=== PATIENT | female | born 1955 | race Hispanic/Latino ===

== ENCOUNTER 2017-03-16 08:54 | Emergency (ER) | payer MEDICAID ==
[2017-03-16 09:09] VITALS: TEMP 98.6
[2017-03-16 09:13] VITALS: O2SAT 95
--- NOTE | 2017-03-16 09:23 | C.PDOC ---
History Of Present Illness 62-year-old female, PMHx includes gastric bypass surgery and history of thyroid cancer, presents to the emergency department with complaints of asthma intermittently x2 weeks. Patient states she saw PMD for same complaint, and finished ten days of Prednisone one week ago. Patient states that sx recurred again. Pt is s/p nebulizer prior to arrival. She is currently asymptomatic. No fever. CO EXAC ASTHMA INTERMIT X 2 WEEKS. SAW PMD FOR SAME, FINISHED 10 DAYS OF PREDNISONE 1 WEEK AGO. STATES RECURRED AGAIN. S/P NEB HAND FUNNEL COATER NOW ASYMPT. NO FEVER, OTHER ASSOC SX. history of gastric bypass surgery and history of thyroid cancer EXAM NARD NONTOXIC SP NEB PRIOR TO ASSESSMENT LUNGS CTA B/L NO W/R/R CV RRR SINUS TACH NO EDEMA REMAINDER NEG MDM PS RELUCTANT TO TAKE STEROIDS AGAIN BUT UNDERSTANDS RISKS/BENEFITS. AGREES TO RESTART WILL FU PMD Time Seen by Provider: 03/16/17 09:22 Chief Complaint (Nursing): Shortness Of Breath History Per: Patient Past Medical History Reviewed: Historical Data, Nursing Documentation, Vital Signs Vital Signs: Last Vital Signs Temp 98.6 F 03/16/17 09:03 Pulse 103 H 03/16/17 09:46 Resp 26 H 03/16/17 09:46 BP 129/70 03/16/17 09:46 Pulse Ox 95 03/16/17 09:46 - Medical History PMH: Anxiety, Asthma, Depression, Diabetes, Fractures (L Knee surgery 3 years ago), Gastrointestinal Ulcer, Hyperthyroidism, Hypothyroidism, Malignancy ( Thyroid), Pancreatitis Surgical History: Cholecystectomy (APRIL 2015) - [facility] Procedures APPLICATION OF SPLINT (12/01/14) CYSTOSCOPY NEC (07/21/13) EXCISION OF STOMACH, ENDO, DIAGN (04/06/16) GROUP PSYCHOTHERAPY (10/02/16) INDIVID PSYCHOTHERAP NEC (04/03/14) LAPAROSCOP LYSIS-PERITONEAL ADHES (05/11/15) LAPAROSCOPIC CHOLECYSTECTOMY (05/11/15) OTHER GROUP THERAPY (04/03/14) PERCUTANEOUS ABDOMINAL DRAINAGE (05/11/15) REMOV URETERAL DRAIN (07/21/13) URETERAL CATHETERIZATION (07/02/13) Family History: States: No Known Family Hx - Social History Hx Tobacco Use: No Hx Alcohol Use: No Hx Substance Use: No - Immunization History Hx Tetanus Toxoid Vaccination: No Hx Influenza Vaccination: Yes Hx Pneumococcal Vaccination: No Review Of Systems Except As Marked, All Systems Reviewed And Found Negative. Constitutional: Negative for: Fever Cardiovascular: Negative for: Chest Pain, Palpitations Respiratory: Positive for: Shortness of Breath, Wheezing. Negative for: Cough Gastrointestinal: Negative for: Nausea, Vomiting Skin: Negative for: Rash Neurological: Negative for: Weakness, Numbness Physical Exam - Physical Exam Appears: Non-toxic, No Acute Distress, Other (SP NEB PRIOR TO ASSESSMENT) Skin: Warm, Dry, No Rash Eye(s): bilateral: Normal Inspection Nose: Normal Neck: Normal ROM Chest: Symmetrical Cardiovascular: Rhythm Regular, No Murmur Respiratory: Normal Breath Sounds, No Accessory Muscle Use, No Rales, No Rhonchi , No Wheezing Extremity: Normal ROM, No Pedal Edema Neurological/Psych: Oriented x3 ED Course And Treatment ECG: Interpreted By Me ECG Rhythm: Sinus Tachycardia Interpretation Of EC O2 Sat by Pulse Oximetry: 95 Pulse Ox Interpretation: Normal Medical Decision Making Medical Decision Making: PS RELUCTANT TO TAKE STEROIDS AGAIN BUT UNDERSTANDS RISKS/BENEFITS. AGREES TO RESTART WILL FU PMD Disposition Counseled Patient/Family Regarding: Diagnosis, Need For Followup, Rx Given - Disposition Referrals: YOUR,PMD [Other] Disposition: HOME/ ROUTINE Disposition Time: 09:33 Condition: IMPROVED Additional Instructions: FINISH 4 DAYS OF PREDNISONE 60 MG DAILY THEN TAKE MEDROL DOSE PACK TO TAPER DOSE. SEE YOUR PMD THIS WEEK. Prescriptions: Methylprednisolone [Medrol] 4 mg PO DAILY #1 packet predniSONE [Prednisone] 60 mg PO DAILY #12 tab Instructions: Asthma (ED) - Clinical Impression Clinical Impression: Asthma - Scribe Statement The provider has reviewed the documentation as recorded by the Rachana Parker All medical record entries made by the Patriciaibsanthosh were at my direction and personally dictated by me. I have reviewed the chart and agree that the record accurately reflects my personal performance of the history, physical exam, medical decision making, and the department course for this patient. I have also personally directed, reviewed, and agree with the discharge instructions and disposition.
[2017-03-16 09:46] VITALS: BP 129/70; PULSE 103; RESP 26
--- NOTE | 2017-03-18 01:59 | CARD ---
APPROVED REPORT EKG Measurement Heart [id number] <Conclusion> Sinus tachycardia Otherwise normal ECG
== END 2017-03-16 09:57 | disposition home or self-care (01) ==
LOC: C.ER 08:54
DX: J45.909 Unspecified asthma, uncomplicated (principal)

== ENCOUNTER 2017-04-01 07:13 | Day surgery (SDC) | payer MEDICAID ==
[2017-04-01 07:43] VITALS: BMI 27.9
[2017-04-01] MEDS ORDERED: Lactated Ringer's 500 ML IV SCH (08:45)
[2017-04-01] MEDS ORDERED: Propofol 10 mg/ml Inj (20 ML) ONE ×3 (08:50→09:45)
[2017-04-01] MEDS ORDERED: Lidocaine Hydrochloride 5 ML INJ ONE (08:51)
[2017-04-01] MEDS ORDERED: Albuterol-Ipratrop 3 mg / 0.5 (3 ml) UD ONE (09:30)
[2017-04-01 10:19] VITALS: TEMP 99
[2017-04-01] MEDS ORDERED: Albuterol-Ipratrop 3 mg / 0.5 (3 ml) UD INH STA (10:57)
[2017-04-01 11:48] VITALS: RESP 20
[2017-04-01 11:50] VITALS: BP 120/72; PULSE 84; O2SAT 98
== END 2017-04-01 11:40 | disposition home or self-care (01) ==
LOC: C.ENDO 07:13
PROVIDERS: ATTEND Internal Medicine Gastroenterology
DX: D12.2 Benign neoplasm of ascending colon (principal); R10.9 Unspecified abdominal pain; R19.7 Diarrhea, unspecified; D12.5 Benign neoplasm of sigmoid colon; K64.8 Other hemorrhoids
CPT/HCPCS: 45388; 82948; 88305; 88313; 88342; 94640; 94761; J2704; J7120

== ENCOUNTER 2017-04-08 20:36 | Inpatient (IN) | payer MEDICAID ==
[2017-04-08 20:36] VITALS: BMI 27.9
[2017-04-08] MEDS ORDERED: Albuterol 0.083% Inhal Sol (2.5 mg/3 mL) UD IH STA (21:07)
[2017-04-08 21:28] LABS: BASO # 0.1 K/uL (0.0-0.2); EOS # 0.3 K/uL (0.0-0.7); EOS % 4.2 % (0.0-4.0); HEMATOCRIT 41.2 % (34.0-47.0); LYMPH # 2.2 K/uL (1.0-4.3); LYMPH % 30.5 % (20.0-40.0); MEAN CORPUSCULAR HEMOGLOBIN 27.4 pg (27.0-31.0); MEAN CORPUSCULAR HGB CONC 33.1 g/dL (33.0-37.0); MEAN PLATELET VOLUME 7.9 fL (7.2-11.7); MONO # 0.5 K/uL (0.0-0.8); MONO % 6.4 % (0.0-10.0); NRBC % 0.1 % (0.0-2.0); RED CELL DISTRIBUTION WIDTH 13.5 % (11.5-14.5); WHITE BLOOD COUNT 7.4 K/uL (4.8-10.8)
[2017-04-08] MEDS ORDERED: Albuterol 0.083% Inhal Sol (2.5 mg/3 mL) UD ONE (21:28)
[2017-04-08 21:30] LABS: MEAN CELL VOLUME 82.9 fL (81.0-99.0)
--- NOTE | 2017-04-08 21:35 | C.PDOC ---
History Of Present Illness 62 year old female was brought to the ED by EMS with complaints of cough, chest congestion, and shortness of breath for two weeks. Medics state patient was given two albuterol treatments and Solu-Medrol en route to ED. Patient notes a history of diabetes, thyroid cancer that is now in remission, and mild asthma with occasional use of ventolin inhaler but denies being hospitalized for asthma related symptoms. She notes chest congestion worsened, cough become productive with yellow phlegm, and progressively more short of breath. Patient states she had an endoscopy performed, while anesthesia began to cough, and was given breathing treatment but produced much more yellow phlegm, chest congestion , and shortness of breath following the treatment. Patient's doctor gave predniSONE, however she is not in compliance with medications because she is unable to tolerate the side effects. Patient is using nebulizer treatment and ventolin inhaler with no relief. She notes exposure to second-hand smoke and associated lightheadedness, fatigue, and bodyaches but denies chills, nausea, or vomiting. Time Seen by Provider: 04/08/17 20:53 Chief Complaint (Nursing): Shortness Of Breath History Per: Patient History/Exam Limitations: no limitations Onset/Duration Of Symptoms: Persistent (2 weeks ) Current Respiratory Medications: Albuterol, Prednisone (discontinued use of prednisone due to inability to tolerate side effects ), Other (nebulizer treatment and ventolin inhaler ) Associated Symptoms: Productive Cough (withe yellow phlegm ), Light-headedness, Other (chest congestion, fatigue, and bodyaches ). denies: Chills Reports Recently: Treated By A Physician (had endoscopy performed ) Recent travel outside of the [place]: No Past Medical History Reviewed: Historical Data, Nursing Documentation, Vital Signs Vital Signs: Last Vital Signs Temp 98.6 F 04/08/17 20:55 Pulse 118 H 04/08/17 20:55 Resp 30 H 04/08/17 21:00 BP 150/80 04/08/17 20:55 Pulse Ox 99 04/08/17 21:46 - Medical History PMH: Anemia, Anxiety, Arthritis, Asthma, Depression, Diabetes, Fractures (LEFT LEG), Gastritis, Gastrointestinal Ulcer, Gall Bladder Disease, Hyperthyroidism, Hypothyroidism (S\P THYROIDECTOMY FOR CANCER), Kidney Stones, Malignancy ( Thyroid), Pancreatitis, Chronic Kidney Disease Surgical History: Cholecystectomy, Endoscopy - [facility] Procedures APPLICATION OF SPLINT (12/01/14) CYSTOSCOPY NEC (07/21/13) EXCISION OF STOMACH, ENDO, DIAGN (04/06/16) GROUP PSYCHOTHERAPY (10/02/16) INDIVID PSYCHOTHERAP NEC (04/03/14) LAPAROSCOP LYSIS-PERITONEAL ADHES (05/11/15) LAPAROSCOPIC CHOLECYSTECTOMY (05/11/15) OTHER GROUP THERAPY (04/03/14) PERCUTANEOUS ABDOMINAL DRAINAGE (05/11/15) REMOV URETERAL DRAIN (07/21/13) URETERAL CATHETERIZATION (07/02/13) Family History: States: Unknown Family Hx - Social History Hx Tobacco Use: No Hx Alcohol Use: No Hx Substance Use: No - Immunization History Hx Tetanus Toxoid Vaccination: No Hx Influenza Vaccination: Yes Hx Pneumococcal Vaccination: No Review Of Systems Constitutional: Positive for: Other (bodyaches and fatigue ). Negative for: Fever, Chills Cardiovascular: Positive for: Other (chest congestion ). Negative for: Palpitations Respiratory: Positive for: Cough (with yellow phlegm ) Gastrointestinal: Negative for: Nausea, Vomiting, Abdominal Pain, Diarrhea Neurological: Positive for: Other (lightheadedness ) Physical Exam - Physical Exam Appears: Non-toxic, No Acute Distress, Other (Patient was given breathing treatments by medics en route to ED prior to exam) Skin: Warm, Dry Head: Atraumatic Eye(s): bilateral: Normal Inspection Ear(s): Bilateral: Normal Oral Mucosa: Moist Throat: Normal, No Erythema, No Exudate Neck: Supple Chest: Symmetrical, No Deformity Cardiovascular: Rhythm Regular Respiratory: No Rales, Rhonchi (course rhonci at both bases ), No Stridor, Wheezing (diffuse wheezing in all lung cee ) ED Course And Treatment - Laboratory Results Result Diagrams: 04/08/17 21:25 04/08/17 21:25 Lab Interpretation: No Acute Changes (Troponin and BNP normal) ECG: Interpreted By [place] ECG Rhythm: Sinus Tachycardia, ST/T Changes, Nonspecific Changes O2 Sat by Pulse Oximetry: 99 (room air ) Pulse Ox Interpretation: Normal - Radiology CXR: Interpreted by [place] CXR Interpretation: Yes: No Acute Disease Reevaluation Time: 23:12 Reassessment Condition: Unchanged (Patient still c/o chest tightness with shortness of breath. She continues to wheeze in all lung cee.) - Physician Consult Information Time Consulting Physician Contacted: 23:13 Physician Contacted: Israel Asher Outcome Of Conversation: Patient to be admitted for exacerbation of asthma with status asthmaticus. Disposition - Disposition Disposition: HOSPITALIZED Disposition Time: 23:13 Condition: FAIR - POA Present On Arrival: Poor Glycemic Control - Clinical Impression Clinical Impression: Status asthmaticus - Scribe Statement The provider has reviewed the documentation as recorded by the Scribe Rekha Shay All medical record entries made by the Scribe were at my direction and personally dictated by me. I have reviewed the chart and agree that the record accurately reflects my personal performance of the history, physical exam, medical decision making, and the department course for this patient. I have also personally directed, reviewed, and agree with the discharge instructions and disposition.
[2017-04-08 21:42] LABS: CHLORIDE 105 mmol/L (98-107); SODIUM 143 mmol/L (132-148)
[2017-04-08 21:43] LABS: POTASSIUM 3.1 mmol/L (3.6-5.2)
[2017-04-08 21:45] LABS: ALB/GLOB RATIO 1.3 (1.0-2.1); ALKALINE PHOSPHATASE 121 U/L (38-126); ALT/SGPT 24 U/L (9-52); AST/SGOT 21 U/L (14-36); BILIRUBIN,TOTAL 0.7 mg/dL (0.2-1.3); BLOOD UREA NITROGEN 10 mg/dL (7-17); CARBON DIOXIDE 25 mmol/L (22-30); GFR AFRICAN-AMERICAN > 60; GLUCOSE,RANDOM 213 mg/dL (65-105); TOTAL PROTEIN 6.8 g/dL (6.3-8.3)
[2017-04-08] MEDS ORDERED: Potassium Chloride 20 mEq ER Tab PO STA (22:44)
[2017-04-08] MEDS ORDERED: Potassium Chloride 20 mEq ER Tab PO ONE (23:33)
[2017-04-09 00:30] LABS: ABG ALLEN TEST POS; CARBOXYHEMOGLOBIN 1.4 % (0.5-1.5); DRAW SITE R RAD; HHB 1.2 % (0.0-5.0); METHEMOGLOBIN 1.4 % (0.0-3.0)
[2017-04-09 01:07] VITALS: RESP 20
[2017-04-09] MEDS ORDERED: Albuterol-Ipratrop 3 mg / 0.5 (3 ml) UD INH STA (01:38)
[2017-04-09] MEDS: Azithromycin 500 MG in Sodium Chloride 0.9% 250 ML IVPB SCH (03:18)
[2017-04-09] MEDS ORDERED: Albuterol HFA 90 mcg/actuation (8 g) IH PRN (03:39)
[2017-04-09] MEDS: Levothyroxine 175 MCG TAB PO SCH (06:44)
[2017-04-09] MEDS ORDERED: Levothyroxine 175 MCG TAB PO SCH (07:30)
[2017-04-09] MEDS ORDERED: (Novolog) Insulin Aspart, Recombinant 100 u/ml 10 ml vial SC SCH (07:30)
[2017-04-09 08:23] LABS: RBC URINE 2 /hpf (0-3); URINE BILIRUBIN NEGATIVE (NEGATIVE); URINE BLOOD NEGATIVE (NEGATIVE); URINE COLOR Yellow (YELLOW); URINE GLUCOSE (UA) 3+ mg/dL (Normal); URINE KETONE TRACE mg/dL (NEGATIVE); URINE LEUKOCYTE ESTERASE TRACE Leu/uL (Negative); URINE PROTEIN NEGATIVE (NEGATIVE); URINE UROBILINOGEN NORMAL mg/dL (0.2-1.0); WBC URINE 2 /hpf (0-5)
[2017-04-09] MEDS: Albuterol-Ipratrop 3 mg / 0.5 (3 ml) UD INH SCH ×4 (09:01→19:56)
--- NOTE | 2017-04-09 09:25 | RAD ---
PROCEDURE: CHEST RADIOGRAPH, 1 VIEW HISTORY: Shortness of breath COMPARISON: None available. FINDINGS: LUNGS: Mild venous congestion. Right hilar prominence. Right basilar atelectasis. PLEURA: No pneumothorax or pleural fluid seen. CARDIOVASCULAR: Normal. OSSEOUS STRUCTURES: No significant abnormalities. VISUALIZED UPPER ABDOMEN: Normal. OTHER FINDINGS: None. IMPRESSION: Mild venous congestion. Right hilar prominence. Right basilar atelectasis.
[2017-04-09] MEDS: Pantoprazole 40 mg EC Tab PO SCH (10:03)
[2017-04-09] MEDS: MethylPREDNISolone 40 mg Vial IVP SCH ×2 (10:04→17:52)
[2017-04-09] MEDS: guaiFENesin 200 mg/10 ml Syrup UD PO SCH ×4 (11:00→21:33)
[2017-04-09] MEDS: Fluticasone-Salmeterol 250-50mcg Diskus INH SCH ×2 (11:02→21:33)
[2017-04-09 11:57] LABS: CHLORIDE 105 mmol/L (98-107); SODIUM 141 mmol/L (132-148)
[2017-04-09 11:59] LABS: GFR AFRICAN-AMERICAN > 60
[2017-04-09 12:00] LABS: BLOOD UREA NITROGEN 14 mg/dL (7-17); CALCIUM 9.7 mg/dl (8.6-10.4); CARBON DIOXIDE 24 mmol/L (22-30); GLUCOSE,RANDOM 246 mg/dL (65-105)
[2017-04-09] MEDS: (Novolog) Insulin Aspart, Recombinant 100 u/ml 10 ml vial SC SCH ×3 (12:46→21:33)
--- NOTE | 2017-04-09 19:00 | CARD ---
APPROVED REPORT EKG Measurement Heart [id number] <Conclusion> Sinus tachycardia Left posterior fascicular block Nonspecific T wave abnormality Abnormal ECG
--- NOTE | 2017-04-09 23:19 | CP.PCM.HP ---
History of Present Illness - History of Present Illness History of Present Illness: CC: shortness of breath, status asthamaticus 62 year old female with h/o COPD,was brought to the ED by EMS with complaints of cough, chest congestion, and shortness of breath for two weeks. Medics state patient was given two albuterol treatments and Solu-Medrol en route to ED. Patient notes a history of diabetes, thyroid cancer that is now in remission, and mild asthma with occasional use of ventolin inhaler but denies being hospitalized for asthma related symptoms. She notes chest congestion worsened, cough become productive with yellow phlegm, and progressively more short of breath. Patient states she had an endoscopy performed, while anesthesia began to cough, and was given breathing treatment but produced much more yellow phlegm , chest congestion, and shortness of breath following the treatment. Patient's doctor gave predniSONE, however she is not in compliance with medications because she is unable to tolerate the side effects. Patient is using nebulizer treatment and ventolin inhaler with no relief. She notes exposure to second- hand smoke and associated lightheadedness, fatigue, and bodyaches but denies chills, nausea, or vomiting. Present on Admission - Present on Admission Any Indicators Present on Admission: Yes Review of Systems - Review of Systems Systems not reviewed;Unavailable: Respiratory Distress - Constitutional Constitutional: Fatigue, Lethargy, Malaise - EENT Nose/Mouth/Throat: Nasal Congestion - Cardiovascular Cardiovascular: Dyspnea - Respiratory Respiratory: Cough, Dyspnea on Exertion, Change in Mucous Color - Gastrointestinal Gastrointestinal: absent: As Per HPI, Abdominal Pain, Belching, Bloating, Change in Bowel Habits, Change in Stool Character, Coffee Ground Emesis, Constipation, Cramping, Diarrhea, Dyspepsia, Dysphagia, Early Satiety, Excessive Flatus, Fecal Incontinence, Heartburn, Hematemesis, Hematochezia, Loose Stools, Melena, Nausea, Odynophagia, Temesmus, Vomiting, Other - Genitourinary Genitourinary: absent: As Per HPI, Change in Urinary Stream, Difficulty Urinating, Dysuria, Flank Pain, Hematuria, Pyuria, Nocturia, Urinary Incontinence, Urinary Frequency, Urinary Hesitance, Urinary Urgency, Voiding Freq/Small Amts, Freq UTI, Hx Renal/Bladder Calculi, Hx /Renal Surgery, Bladder Distension, Other Past Patient History - Infectious Disease Hx of Infectious Diseases: None - Past Medical History & Family History Past Medical History?: Yes - Past Social History Smoking Status: Never Smoked - CARDIAC Hx Cardiac Disorders: No Hx Hypercholesterolemia: No Hx Hypertension: No - PULMONARY Hx Respiratory Disorders: Yes Hx Asthma: Yes - NEUROLOGICAL Hx Neurological Disorder: No Hx Seizures: No - HEENT Hx HEENT Problems: Yes Other/Comment: LEFT EAR TUMOR REMOVED - RENAL Hx Chronic Kidney Disease: Yes Hx Kidney Stones: Yes - ENDOCRINE/METABOLIC Hx Hyperthyroidism: Yes Hx Hypothyroidism: Yes (S\P THYROIDECTOMY FOR CANCER) - HEMATOLOGICAL/ONCOLOGICAL Hx Blood Disorders: Yes Hx Anemia: Yes - INTEGUMENTARY Hx Dermatological Problems: No - MUSCULOSKELETAL/RHEUMATOLOGICAL Hx Arthritis: Yes Hx Falls: Yes Hx Fractures: Yes (LEFT LEG) - GASTROINTESTINAL Hx Gastrointestinal Disorders: Yes Hx Gall Bladder Disease: Yes Hx Gastritis: Yes Hx Pancreatitis: Yes Other/Comment: GASTRIC BYPASS - GENITOURINARY/GYNECOLOGICAL Hx Genitourinary Disorders: No Hx Sexually Transmitted Disorders: No - PSYCHIATRIC Hx Psychophysiologic Disorder: Yes Hx Anxiety: Yes Hx Depression: Yes (on therapy and meds) Hx Substance Use: No - SURGICAL HISTORY Hx Surgeries: Yes Hx Cholecystectomy: Yes Hx Gastric Bypass Surgery: Yes Other/Comment: last thu polyp removal with clip ,left knee surgery has 'pins'7 yrs ago - ANESTHESIA Hx Anesthesia: Yes Hx Anesthesia Reactions: No Hx Malignant Hyperthermia: No Has any member of the family had a problem w/ anesthesia?: No Meds Allergies/Adverse Reactions: Allergies Allergy/AdvReac Type Severity Reaction Status Date / Time No Known Allergies Allergy Verified 04/08/17 21:05 Physical Exam - Constitutional Additional comments: in moderate resp distress - Eye Exam Eye Exam: EOMI, Normal appearance, PERRL Pupil Exam: NORMAL ACCOMODATION, PERRL - ENT Exam ENT Exam: Mucous Membranes Moist, Normal Exam - Neck Exam Neck exam: Positive for: Normal Inspection - Respiratory Exam Respiratory Exam: Decreased Breath Sounds, Rales, Rhonchi, Wheezes - Cardiovascular Exam Cardiovascular Exam: REGULAR RHYTHM - GI/Abdominal Exam GI & Abdominal Exam: Normal Bowel Sounds, Soft. absent: Tenderness Results - Vital Signs Recent Vital Signs: Last Vital Signs Temp 98.1 F 04/09/17 15:43 Pulse 89 04/09/17 15:43 Resp 20 04/09/17 15:43 BP 109/69 06/22/17 15:43 Pulse Ox 99 04/09/17 15:43 - Labs Result Diagrams: 04/08/17 21:25 04/09/17 11:32 Labs: Laboratory Results - last 24 hr 04/09/17 04/09/17 04/09/17 00:21 06:32 08:00 Puncture Site R rad pCO2 39 pO2 99 HCO3 25.5 ABG pH 7.42 ABG Total CO2 26.5 ABG O2 Saturation 98.8 H ABG Base Excess 0.8 ABG Hemoglobin 12.4 ABG Carboxyhemoglobin 1.4 POC ABG HHb (Measured) 1.2 ABG Methemoglobin 1.4 Cristian Test Pos Hgb O2 Saturation 96.0 Sodium Potassium Chloride Carbon Dioxide Anion Gap BUN Creatinine Est GFR ( Amer) Est GFR (Non-Af Amer) POC Glucose (mg/dL) 335 H Random Glucose Calcium Urine Color Yellow Urine Clarity Clear Urine pH 5.0 Ur Specific Sheldahl 1.031 H Urine Protein Negative Urine Glucose (UA) 3+ H Urine Ketones Trace Urine Blood Negative Urine Nitrate Negative Urine Bilirubin Negative Urine Urobilinogen Normal Ur Leukocyte Esterase Trace Urine WBC (Auto) 2 Urine RBC (Auto) 2 Ur Squamous Epith Cells 2 04/09/17 04/09/17 04/09/17 11:32 12:16 16:09 Puncture Site pCO2 pO2 HCO3 ABG pH ABG Total CO2 ABG O2 Saturation ABG Base Excess ABG Hemoglobin ABG Carboxyhemoglobin POC ABG HHb (Measured) ABG Methemoglobin Cristian Test Hgb O2 Saturation Sodium 141 Potassium 4.0 Chloride 105 Carbon Dioxide 24 Anion Gap 16 BUN 14 Creatinine 0.6 L Est GFR ( Amer) > 60 Est GFR (Non-Af Amer) > 60 POC Glucose (mg/dL) 217 H 172 H Random Glucose 246 H Calcium 9.7 Urine Color Urine Clarity Urine pH Ur Specific Sheldahl Urine Protein Urine Glucose (UA) Urine Ketones Urine Blood Urine Nitrate Urine Bilirubin Urine Urobilinogen Ur Leukocyte Esterase Urine WBC (Auto) Urine RBC (Auto) Ur Squamous Epith Cells 04/09/17 21:00 Puncture Site pCO2 pO2 HCO3 ABG pH ABG Total CO2 ABG O2 Saturation ABG Base Excess ABG Hemoglobin ABG Carboxyhemoglobin POC ABG HHb (Measured) ABG Methemoglobin Cristian Test Hgb O2 Saturation Sodium Potassium Chloride Carbon Dioxide Anion Gap BUN Creatinine Est GFR ( Amer) Est GFR (Non-Af Amer) POC Glucose (mg/dL) 242 H Random Glucose Calcium Urine Color Urine Clarity Urine pH Ur Specific Sheldahl Urine Protein Urine Glucose (UA) Urine Ketones Urine Blood Urine Nitrate Urine Bilirubin Urine Urobilinogen Ur Leukocyte Esterase Urine WBC (Auto) Urine RBC (Auto) Ur Squamous Epith Cells Assessment & Plan (1) Status asthmaticus Status: Acute (2) Diabetes mellitus Status: Chronic (3) History of thyroid cancer Status: Chronic Priority: Low (4) Hypertension Status: Chronic Priority: Medium (5) Hypothyroidism Status: Chronic
[2017-04-10] MEDS: Azithromycin 500 MG in Sodium Chloride 0.9% 250 ML IVPB SCH (02:51)
[2017-04-10] MEDS: MethylPREDNISolone 40 mg Vial IVP SCH ×3 (05:05→17:49)
[2017-04-10] MEDS: Levothyroxine 175 MCG TAB PO SCH (06:08)
[2017-04-10] MEDS: (Novolog) Insulin Aspart, Recombinant 100 u/ml 10 ml vial SC SCH ×4 (07:53→22:01)
[2017-04-10] MEDS: Albuterol-Ipratrop 3 mg / 0.5 (3 ml) UD INH SCH ×4 (08:13→19:54)
[2017-04-10] MEDS: Fluticasone-Salmeterol 250-50mcg Diskus INH SCH ×3 (08:47→19:54)
[2017-04-10] MEDS ORDERED: Pneumococcal 23-Valent Vaccine IM ONE (10:00)
[2017-04-10] MEDS: Pantoprazole 40 mg EC Tab PO SCH (10:25)
[2017-04-10] MEDS: guaiFENesin 200 mg/10 ml Syrup UD PO SCH (10:29)
[2017-04-10] MEDS: Promethazine 6.25 MG/5 ML CUP PO PRN ×2 (13:28→21:59)
--- NOTE | 2017-04-10 23:34 | CP.PCM.PN ---
Subjective - Date & Time of Evaluation Date of Evaluation: 04/10/17 Time of Evaluation: 21:00 - Subjective Subjective: Pt seen and examined, less cough, less short of breath, is feeling better,, blood sugars are fluctuation.on tapering doses of steroids , nebulizer treatment Objective - Vital Signs/Intake and Output Vital Signs (last 24 hours): Temp Pulse Resp BP Pulse Ox 98.5 F 81 20 124/79 96 04/10/17 15:11 04/10/17 15:11 04/10/17 15:11 04/10/17 15:11 04/10/17 15:11 Intake and Output: 04/10/17 04/11/17 18:59 06:59 Intake Total 400 Balance 400 - Medications Medications: Current Medications Albuterol (Ventolin Hfa 90 Mcg/Actuation (8 G)) 1 puff IH QID PRN PRN Reason: Wheezing Albuterol/Ipratropium (Duoneb 3 Mg/0.5 Mg (3 Ml) Ud) 3 ml INH RQ4 [facility] Last Admin: 04/10/17 19:54 Dose: 3 ml Alprazolam (Xanax) 1 mg PO TID [facility] Last Admin: 04/10/17 17:49 Dose: 1 mg Heparin Sodium (Porcine) (Heparin) 5,000 units SC Q12 [facility] Last Admin: 04/10/17 21:59 Dose: 5,000 units Azithromycin 500 mg/ Sodium (Chloride) 250 mls @ 167 mls/hr IVPB Q24H [facility] Last Admin: 04/10/17 02:51 Dose: 167 mls/hr Ceftriaxone Sodium 1 gm/ (Sodium Chloride) 100 mls @ 100 mls/hr IVPB Q24H [facility] Last Admin: 04/10/17 02:51 Dose: 100 mls/hr Insulin Aspart (Novolog) 0 unit SC ACHS ANDREWS PRN Reason: Protocol Last Admin: 04/10/17 22:01 Dose: Not Given Levothyroxine Sodium (Synthroid) 175 mcg PO DAILY@0630 [facility] Last Admin: 04/10/17 06:08 Dose: 175 mcg Metformin HCl (Glucophage) 500 mg PO BID [facility] Last Admin: 04/10/17 17:47 Dose: 500 mg Methylprednisolone (Solu-Medrol) 60 mg IVP DAILY [facility] Montelukast Sodium (Singulair) 10 mg PO HS [facility] Last Admin: 04/10/17 22:00 Dose: 10 mg Pantoprazole Sodium (Protonix Ec Tab) 40 mg PO DAILY [facility] Last Admin: 04/10/17 10:25 Dose: 40 mg Promethazine HCl (Phenergan Syrup) 6.25 mg PO Q6 PRN PRN Reason: Cough Last Admin: 04/10/17 21:59 Dose: 6.25 mg Fluticasone/Salmeterol (Advair Diskus 250/50) 1 puff INH BID [facility] Last Admin: 04/10/17 19:54 Dose: 1 puff - Labs Labs: 04/09/17 11:32 - Constitutional Appears: No Acute Distress - Head Exam Head Exam: ATRAUMATIC, NORMAL INSPECTION, NORMOCEPHALIC - Eye Exam Eye Exam: EOMI, Normal appearance, PERRL Pupil Exam: NORMAL ACCOMODATION, PERRL - Respiratory Exam Respiratory Exam: Decreased Breath Sounds, Rhonchi, Wheezes, NORMAL BREATHING PATTERN - Cardiovascular Exam Cardiovascular Exam: REGULAR RHYTHM, +S1, +S2. absent: Murmur - Neurological Exam Neurological Exam: Alert, Awake, CN II-XII Intact, Normal Gait, Oriented x3 - Psychiatric Exam Psychiatric exam: Normal Affect, Normal Mood Assessment and Plan (1) Bronchitis Status: Acute (2) Status asthmaticus Status: Acute (3) Asthma Status: Acute (4) Diabetes mellitus Status: Chronic (5) History of thyroid cancer Status: Chronic (6) Hypertension Status: Chronic (7) Hypothyroidism Status: Chronic
[2017-04-11] MEDS: Albuterol-Ipratrop 3 mg / 0.5 (3 ml) UD INH SCH ×6 (00:08→19:17)
[2017-04-11] MEDS: Azithromycin 500 MG in Sodium Chloride 0.9% 250 ML IVPB SCH (02:54)
[2017-04-11] MEDS: Promethazine 6.25 MG/5 ML CUP PO PRN ×2 (04:21→20:59)
[2017-04-11] MEDS: Levothyroxine 175 MCG TAB PO SCH (06:24)
[2017-04-11] MEDS: (Novolog) Insulin Aspart, Recombinant 100 u/ml 10 ml vial SC SCH ×4 (08:29→22:55)
[2017-04-11 08:47] LABS: BASO % 0.1 % (0.0-2.0); HEMATOCRIT 40.9 % (34.0-47.0); LYMPH # 0.6 K/uL (1.0-4.3); LYMPH % 6.4 % (20.0-40.0); MEAN CELL VOLUME 83.1 fL (81.0-99.0); MEAN CORPUSCULAR HEMOGLOBIN 26.9 pg (27.0-31.0); MEAN CORPUSCULAR HGB CONC 32.4 g/dL (33.0-37.0); MEAN PLATELET VOLUME 8.3 fL (7.2-11.7); MONO # 0.5 K/uL (0.0-0.8); MONO % 5.4 % (0.0-10.0); PLATELET COUNT 244 K/uL (130-400); RED CELL DISTRIBUTION WIDTH 14.1 % (11.5-14.5); WHITE BLOOD COUNT 9.5 K/uL (4.8-10.8)
[2017-04-11 08:54] LABS: ABG ALLEN TEST POS; ARTERIAL BLOOD HGB O2 SAT 92.9 % (95.0-98.0); CARBOXYHEMOGLOBIN 1.2 % (0.5-1.5); DRAW SITE RRA; HHB 4.8 % (0.0-5.0); METHEMOGLOBIN 1.1 % (0.0-3.0)
[2017-04-11 08:56] LABS: CHLORIDE 101 mmol/L (98-107)
[2017-04-11 08:57] LABS: POTASSIUM 3.7 mmol/L (3.6-5.2); SODIUM 140 mmol/L (132-148)
[2017-04-11 08:59] LABS: GFR AFRICAN-AMERICAN > 60
[2017-04-11 09:00] LABS: BLOOD UREA NITROGEN 28 mg/dL (7-17); CALCIUM 9.5 mg/dl (8.6-10.4); CARBON DIOXIDE 27 mmol/L (22-30); GLUCOSE,RANDOM 240 mg/dL (65-105)
[2017-04-11] MEDS: Pantoprazole 40 mg EC Tab PO SCH (09:21)
[2017-04-11] MEDS ORDERED: MethylPREDNISolone 40 mg Vial IVP SCH ×2 (10:00→16:15)
[2017-04-11] MEDS: Fluticasone-Salmeterol 250-50mcg Diskus INH SCH ×2 (10:10→19:16)
[2017-04-11 12:00] LABS: NEUTROPHIL 85 % (50-75); TOTAL CELLS COUNTED 100
--- NOTE | 2017-04-11 18:42 | PN ---
DATE: 04/11/2017 Thank you for asking ____ reports a nonsmoker with a history of longstanding COPD, diabetes mellitus, thyroidectomy, ____ arthritis, gastric bypass surgery for obesity and colonic polyp removal. The pa ivy now admitted with increasing dyspnea, cough with yellowish sputum, fatigue, feeling lightheaded , with no chills. There was no vomiting, no hemoptysis. No seizures. The patient is a nonsmoker, w ith no reported allergy. She does not use alcohol. Past history of arthritis, gastric bypass surger y, removal of colonic polyp, COPD, diabetes mellitus, thyroid cancer, thyroidectomy. SYSTEMIC: As detailed above. There is nothing else unremarkable. 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 GI: No vomiting or bowel irregularity. Cardio respiratory: History of COPD, complains of dyspnea, cough and yellow sputum. RENAL: No dysuria or other symptoms. SKELETAL: She complains of fatigue and general weakness. She has history of arthritis. On examination, she is alert, oriented, afebrile with blood pressure 121/66, pulse 74, respiration 20 , hemoglobin oxygen saturation ____ . She says her dyspnea is improving, but she still feels a little wheezy at times. Dalton Duff MD cc: [id number] TT: 04/11/2017 15:15:26 Confirmation # [id number] Dictation # [id number] 04/11/2017 17:41:13
--- NOTE | 2017-04-11 23:17 | CP.PCM.PN ---
Subjective - Date & Time of Evaluation Date of Evaluation: 04/11/17 Time of Evaluation: 20:10 - Subjective Subjective: seen and examined Objective - Vital Signs/Intake and Output Vital Signs (last 24 hours): Temp Pulse Resp BP Pulse Ox 98.4 F 80 20 111/69 95 04/11/17 16:00 04/11/17 16:00 04/11/17 16:00 04/11/17 16:00 04/11/17 16:00 - Medications Medications: Current Medications Albuterol (Ventolin Hfa 90 Mcg/Actuation (8 G)) 1 puff IH QID PRN PRN Reason: Wheezing Albuterol/Ipratropium (Duoneb 3 Mg/0.5 Mg (3 Ml) Ud) 3 ml INH RQ4 [facility] Last Admin: 04/11/17 19:17 Dose: 3 ml Alprazolam (Xanax) 1 mg PO TID [facility] Last Admin: 04/11/17 17:41 Dose: 1 mg Heparin Sodium (Porcine) (Heparin) 5,000 units SC Q12 [facility] Last Admin: 04/11/17 20:59 Dose: 5,000 units Azithromycin 500 mg/ Sodium (Chloride) 250 mls @ 167 mls/hr IVPB Q24H [facility] Last Admin: 04/11/17 02:54 Dose: 167 mls/hr Ceftriaxone Sodium 1 gm/ (Sodium Chloride) 100 mls @ 100 mls/hr IVPB Q24H [facility] Last Admin: 04/11/17 02:53 Dose: 100 mls/hr Insulin Aspart (Novolog) 0 unit SC ACHS ANDREWS PRN Reason: Protocol Last Admin: 04/11/17 22:55 Dose: Not Given Levothyroxine Sodium (Synthroid) 175 mcg PO DAILY@0630 [facility] Last Admin: 04/11/17 06:24 Dose: 175 mcg Metformin HCl (Glucophage) 500 mg PO BID [facility] Last Admin: 04/11/17 17:41 Dose: 500 mg Montelukast Sodium (Singulair) 10 mg PO HS [facility] Last Admin: 04/11/17 21:00 Dose: 10 mg Ondansetron HCl (Zofran Inj) 4 mg IVP Q4 PRN PRN Reason: Nausea/Vomiting Last Admin: 04/11/17 21:32 Dose: 4 mg Pantoprazole Sodium (Protonix Ec Tab) 40 mg PO DAILY [facility] Last Admin: 04/11/17 09:21 Dose: 40 mg Promethazine HCl (Phenergan Syrup) 6.25 mg PO Q6 PRN PRN Reason: Cough Last Admin: 04/11/17 20:59 Dose: 6.25 mg Fluticasone/Salmeterol (Advair Diskus 250/50) 1 puff INH BID [facility] Last Admin: 04/11/17 19:16 Dose: 1 puff - Labs Labs: 04/11/17 08:37 04/11/17 08:37 Assessment and Plan (1) Bronchitis Status: Acute (2) Status asthmaticus Status: Acute (3) Asthma Status: Acute (4) Diabetes mellitus Status: Chronic (5) History of thyroid cancer Status: Chronic (6) Hypertension Status: Chronic (7) Hypothyroidism Status: Chronic
[2017-04-12] MEDS: Albuterol-Ipratrop 3 mg / 0.5 (3 ml) UD INH SCH ×6 (00:57→19:28)
[2017-04-12] MEDS: Azithromycin 500 MG in Sodium Chloride 0.9% 250 ML IVPB SCH (01:38)
[2017-04-12] MEDS ORDERED: DiphenhydrAMINE 12.5 mg/5 ml LIQ UD (5 ml) PO STA (03:30)
--- NOTE | 2017-04-12 03:31 | CP.PCM.PN ---
Subjective - Date & Time of Evaluation Date of Evaluation: 04/12/17 Time of Evaluation: 03:25 - Subjective Subjective: Patient had a rash on the arm. Ceftriaxone was placed on hold. Ordered 12.5mg of Benadryl. Objective - Vital Signs/Intake and Output Vital Signs (last 24 hours): Temp Pulse Resp BP Pulse Ox 97.8 F 80 20 127/71 95 04/11/17 23:50 04/11/17 23:50 04/11/17 23:50 04/11/17 23:50 04/11/17 23:50 - Medications Medications: Current Medications Albuterol (Ventolin Hfa 90 Mcg/Actuation (8 G)) 1 puff IH QID PRN PRN Reason: Wheezing Albuterol/Ipratropium (Duoneb 3 Mg/0.5 Mg (3 Ml) Ud) 3 ml INH RQ4 [facility] Last Admin: 04/12/17 00:57 Dose: 3 ml Alprazolam (Xanax) 1 mg PO TID [facility] Last Admin: 04/11/17 17:41 Dose: 1 mg Heparin Sodium (Porcine) (Heparin) 5,000 units SC Q12 [facility] Last Admin: 04/11/17 20:59 Dose: 5,000 units Azithromycin 500 mg/ Sodium (Chloride) 250 mls @ 167 mls/hr IVPB Q24H [facility] Last Admin: 04/12/17 01:38 Dose: 167 mls/hr Insulin Aspart (Novolog) 0 unit SC ACHS ANDREWS PRN Reason: Protocol Last Admin: 04/11/17 22:55 Dose: Not Given Levothyroxine Sodium (Synthroid) 175 mcg PO DAILY@0630 [facility] Last Admin: 04/11/17 06:24 Dose: 175 mcg Metformin HCl (Glucophage) 500 mg PO BID [facility] Last Admin: 04/11/17 17:41 Dose: 500 mg Montelukast Sodium (Singulair) 10 mg PO HS [facility] Last Admin: 04/11/17 21:00 Dose: 10 mg Ondansetron HCl (Zofran Inj) 4 mg IVP Q4 PRN PRN Reason: Nausea/Vomiting Last Admin: 04/11/17 21:32 Dose: 4 mg Pantoprazole Sodium (Protonix Ec Tab) 40 mg PO DAILY [facility] Last Admin: 04/11/17 09:21 Dose: 40 mg Promethazine HCl (Phenergan Syrup) 6.25 mg PO Q6 PRN PRN Reason: Cough Last Admin: 04/11/17 20:59 Dose: 6.25 mg Fluticasone/Salmeterol (Advair Diskus 250/50) 1 puff INH BID [facility] Last Admin: 04/11/17 19:16 Dose: 1 puff - Labs Labs: 04/11/17 08:37 04/11/17 08:37
[2017-04-12] MEDS: Levothyroxine 175 MCG TAB PO SCH (06:28)
[2017-04-12] MEDS: (Novolog) Insulin Aspart, Recombinant 100 u/ml 10 ml vial SC SCH ×4 (07:32→21:53)
[2017-04-12] MEDS: Fluticasone-Salmeterol 250-50mcg Diskus INH SCH ×2 (09:30→19:27)
[2017-04-12] MEDS: Pantoprazole 40 mg EC Tab PO SCH (09:51)
--- NOTE | 2017-04-12 19:14 | PN ---
DATE: 04/12/2017 The patient is alert, oriented. Her family is by her bedside. She is not in acute distress. Her dy spnea is improving. There is no chest pain or palpitations. OBJECTIVE: VITAL SIGNS: She is afebrile, blood pressure 112/70, pulse 80, respiration 20, hemoglobin oxygen sat uration of 96%. HEART: Regular, no gallop rhythm. LUNGS: Diminished breath sounds over lung bases with rhonchi decreasing. Occasional wheezes present and she is on bronchodilators and steroids. ABDOMEN: Soft. EXTREMITIES: Legs no edema. IMPRESSION: Respiratory insufficiency, chronic obstructive pulmonary disease exacerbation, ___ __, status post thyroidectomy, and arthritis. PLAN: Will continue with antibiotics, bronchodilators, steroids and will check a BNP. Dalton Duff MD cc: [id number] TT: 04/12/2017 17:45:46 Confirmation # [id number] Dictation # [id number] radha
[2017-04-12] MEDS: Promethazine 6.25 MG/5 ML CUP PO PRN (21:57)
[2017-04-13] MEDS: Albuterol-Ipratrop 3 mg / 0.5 (3 ml) UD INH SCH ×4 (00:39→11:17)
[2017-04-13] MEDS: Azithromycin 500 MG in Sodium Chloride 0.9% 250 ML IVPB SCH (03:23)
[2017-04-13] MEDS: Levothyroxine 175 MCG TAB PO SCH (06:21)
[2017-04-13] MEDS: (Novolog) Insulin Aspart, Recombinant 100 u/ml 10 ml vial SC SCH ×2 (08:06→12:09)
[2017-04-13] MEDS: Fluticasone-Salmeterol 250-50mcg Diskus INH SCH (09:46)
[2017-04-13 09:55] VITALS: BP 123/78; PULSE 82; TEMP 97.9; O2SAT 95
[2017-04-13] MEDS: Pantoprazole 40 mg EC Tab PO SCH (10:38)
--- NOTE | 2017-04-13 11:08 | PN ---
DATE: 04/13/2017 PHYSICAL EXAMINATION: GENERAL: The patient is alert, oriented. VITAL SIGNS: She is afebrile, blood pressure 122/78, pulse 82, respirations 20, hemoglobin oxygen sa turation of 95%. Her dyspnea has improved. There is no chest pain. HEART: Regular, no gallop rhythm. LUNGS: Diminished breath sounds. Rhonchi improved. ABDOMEN: Soft. LEGS: No edema. LABORATORY DATA: Her blood sugar is 110 this morning. IMPRESSION: Respiratory insufficiency, chronic obstructive pulmonary disease, arthritis, anemia. PLAN: To continue with the current measures and follow with consult specialist. Dalton Duff MD cc: [id number] TT: 04/13/2017 11:07:37 Confirmation # [id number] Dictation # [id number] mn
--- NOTE | 2017-04-13 13:15 | CP.PCM.PN ---
Subjective - Date & Time of Evaluation Date of Evaluation: 04/13/17 Time of Evaluation: 11:20 - Subjective Subjective: Pt seen and examined today , states feels better, sob and cough improved, denies any chest pain, palpitations, abdominal pain, N/V/D oob ambulating hallway without sob and spo2 remains stable - 95% Objective - Vital Signs/Intake and Output Vital Signs (last 24 hours): Temp Pulse Resp BP Pulse Ox 97.9 F 82 20 123/78 95 04/13/17 08:00 04/13/17 08:00 04/13/17 08:00 04/13/17 08:00 04/13/17 08:00 Intake and Output: 04/13/17 04/13/17 06:59 18:59 Intake Total 600 Balance 600 - Medications Medications: Current Medications Albuterol (Ventolin Hfa 90 Mcg/Actuation (8 G)) 1 puff IH QID PRN PRN Reason: Wheezing Albuterol/Ipratropium (Duoneb 3 Mg/0.5 Mg (3 Ml) Ud) 3 ml INH RQ4 [facility] Last Admin: 04/13/17 11:17 Dose: 3 ml Alprazolam (Xanax) 1 mg PO TID [facility] Last Admin: 04/13/17 10:38 Dose: 1 mg Heparin Sodium (Porcine) (Heparin) 5,000 units SC Q12 [facility] Last Admin: 04/13/17 10:38 Dose: 5,000 units Azithromycin 500 mg/ Sodium (Chloride) 250 mls @ 167 mls/hr IVPB Q24H [facility] Last Admin: 04/13/17 03:23 Dose: Not Given Ceftriaxone Sodium 1 gm/ (Sodium Chloride) 100 mls @ 100 mls/hr IVPB Q24H [facility] Last Admin: 04/13/17 02:56 Dose: 100 mls/hr Insulin Aspart (Novolog) 0 unit SC ACHS ANDREWS PRN Reason: Protocol Last Admin: 04/13/17 12:09 Dose: Not Given Levothyroxine Sodium (Synthroid) 175 mcg PO DAILY@0630 [facility] Last Admin: 04/13/17 06:21 Dose: 175 mcg Metformin HCl (Glucophage) 500 mg PO BID [facility] Last Admin: 04/13/17 10:38 Dose: 500 mg Montelukast Sodium (Singulair) 10 mg PO HS [facility] Last Admin: 04/12/17 21:52 Dose: 10 mg Ondansetron HCl (Zofran Inj) 4 mg IVP Q4 PRN PRN Reason: Nausea/Vomiting Last Admin: 04/11/17 21:32 Dose: 4 mg Pantoprazole Sodium (Protonix Ec Tab) 40 mg PO DAILY [facility] Last Admin: 04/13/17 10:38 Dose: 40 mg Promethazine HCl (Phenergan Syrup) 6.25 mg PO Q6 PRN PRN Reason: Cough Last Admin: 04/12/17 21:57 Dose: 6.25 mg Fluticasone/Salmeterol (Advair Diskus 250/50) 1 puff INH BID [facility] Last Admin: 04/13/17 09:46 Dose: 1 puff - Labs Labs: 04/11/17 08:37 04/11/17 08:37 - Constitutional Appears: Well, No Acute Distress - Respiratory Exam Respiratory Exam: Decreased Breath Sounds, Rhonchi, NORMAL BREATHING PATTERN - Cardiovascular Exam Cardiovascular Exam: REGULAR RHYTHM, +S1, +S2 - Neurological Exam Neurological Exam: Alert, Awake, Oriented x3 Assessment and Plan - Assessment and Plan (Free Text) Assessment: A/P 62 yr old female admitted for exc. asthma/ bronchitis Pt clinically improved after treatment spo2 -95% without oxygen D/W Dr. Asher, stable for discharge home today and f/u with PMD in 1 week Discharge plan discussed with patient who understands and agrees with plan Pt instructed to returns to ED if symptoms returns or any other concerning symptoms
--- NOTE | 2017-04-13 22:38 | CP.PCM.PN ---
Subjective - Date & Time of Evaluation Date of Evaluation: 04/12/17 Time of Evaluation: 20:00 - Subjective Subjective: seen & examine, Patient had a rash on the arm. Ceftriaxone was placed on hold. Ordered 12.5mg of Benadryl. Objective - Vital Signs/Intake and Output Vital Signs (last 24 hours): Temp Pulse Resp BP Pulse Ox 97.9 F 82 20 123/78 95 04/13/17 08:00 04/13/17 08:00 04/13/17 08:00 04/13/17 08:00 04/13/17 08:00 - Labs Labs: 04/11/17 08:37 04/11/17 08:37 Assessment and Plan (1) Bronchitis Status: Acute (2) Status asthmaticus Status: Acute (3) Asthma Status: Acute (4) Diabetes mellitus Status: Chronic (5) History of thyroid cancer Status: Chronic (6) Hypertension Status: Chronic (7) Hypothyroidism Status: Chronic
--- NOTE | 2017-04-13 22:40 | CP.PCM.DIS ---
Provider - Provider Date of Admission: 04/08/17 23:07 Attending physician: Israel Asher MD Diagnosis - Discharge Diagnosis (1) Bronchitis Status: Acute (2) Status asthmaticus Status: Acute (3) Asthma Status: Acute (4) Diabetes mellitus Status: Chronic (5) History of thyroid cancer Status: Chronic Priority: Low (6) Hypertension Status: Chronic Priority: Medium (7) Hypothyroidism Status: Chronic Hospital Course - Lab Results Lab Results: Micro Results 04/09/17 04:16 Urine Urine Culture - Final No Growth (<1,000 CFU/ML) Most Recent Lab Values WBC 9.5 K/uL (4.8-10.8) 04/11/17 08:37 RBC 4.92 Mil/uL (3.80-5.20) 04/11/17 08:37 Hgb 13.3 g/dL (11.0-16.0) 04/11/17 08:37 Hct 40.9 % (34.0-47.0) 04/11/17 08:37 MCV 83.1 fL (81.0-99.0) 04/11/17 08:37 MCH 26.9 pg (27.0-31.0) L 04/11/17 08:37 MCHC 32.4 g/dL (33.0-37.0) L 04/11/17 08:37 RDW 14.1 % (11.5-14.5) 04/11/17 08:37 Plt Count 244 K/uL (130-400) 04/11/17 08:37 MPV 8.3 fL (7.2-11.7) 04/11/17 08:37 Neut % (Auto) 88.1 % (50.0-75.0) H 04/11/17 08:37 Lymph % (Auto) 6.4 % (20.0-40.0) L 04/11/17 08:37 Summers % (Auto) 5.4 % (0.0-10.0) 04/11/17 08:37 Eos % (Auto) 0.0 % (0.0-4.0) 04/11/17 08:37 Baso % (Auto) 0.1 % (0.0-2.0) 04/11/17 08:37 Neut # 8.4 K/uL (1.8-7.0) H 04/11/17 08:37 Lymph # 0.6 K/uL (1.0-4.3) L 04/11/17 08:37 Summers # 0.5 K/uL (0.0-0.8) 04/11/17 08:37 Eos # 0.0 K/uL (0.0-0.7) 04/11/17 08:37 Baso # 0.0 K/uL (0.0-0.2) 04/11/17 08:37 Neutrophils % (Manual) 85 % (50-75) H 04/11/17 08:37 Band Neutrophils % 1 % (0-2) 04/11/17 08:37 Lymphocytes % (Manual) 9 % (20-40) L 04/11/17 08:37 Monocytes % (Manual) 5 % (0-10) 04/11/17 08:37 Platelet Estimate Normal (NORMAL) 04/11/17 08:37 Anisocytosis (manual) Slight 04/11/17 08:37 Puncture Site Rra 04/11/17 08:47 pCO2 37 mm/Hg (35-45) 04/11/17 08:47 pO2 64 mm/Hg (80-100) L 04/11/17 08:47 HCO3 26.8 mmol/L (21-28) 04/11/17 08:47 ABG pH 7.46 (7.35-7.45) H 04/11/17 08:47 ABG Total CO2 27.4 mmol/L (22-28) 04/11/17 08:47 ABG O2 Saturation 95.1 % (95-98) 04/11/17 08:47 ABG Base Excess 2.5 mmol/L (-2.0-3.0) 04/11/17 08:47 ABG Hemoglobin 12.0 g/dL (11.7-17.4) 04/11/17 08:47 ABG Carboxyhemoglobin 1.2 % (0.5-1.5) 04/11/17 08:47 POC ABG HHb (Measured) 4.8 % (0.0-5.0) 04/11/17 08:47 ABG Methemoglobin 1.1 % (0.0-3.0) 04/11/17 08:47 Cristian Test Pos 04/11/17 08:47 A-a O2 Difference 39.0 mm/Hg 04/11/17 08:47 Respiratory Index 0.6 04/11/17 08:47 Hgb O2 Saturation 92.9 % (95.0-98.0) L 04/11/17 08:47 FiO2 21.0 % 04/11/17 08:47 Sodium 140 mmol/L (132-148) 04/11/17 08:37 Potassium 3.7 mmol/L (3.6-5.2) 04/11/17 08:37 Chloride 101 mmol/L (98-107) 04/11/17 08:37 Carbon Dioxide 27 mmol/L (22-30) 04/11/17 08:37 Anion Gap 17 (10-20) 04/11/17 08:37 BUN 28 mg/dL (7-17) H 04/11/17 08:37 Creatinine 0.5 MG/DL (0.7-1.2) L 04/11/17 08:37 Est GFR ( Amer) > 60 04/11/17 08:37 Est GFR (Non-Af Amer) > 60 04/11/17 08:37 POC Glucose (mg/dL) 116 mg/dL (65-110) H 04/13/17 11:22 Random Glucose 240 mg/dL (65-105) H 04/11/17 08:37 Calcium 9.5 mg/dl (8.6-10.4) 04/11/17 08:37 Total Bilirubin 0.7 mg/dL (0.2-1.3) 04/08/17 21:25 AST 21 U/L (14-36) 04/08/17 21:25 ALT 24 U/L (9-52) 04/08/17 21:25 Alkaline Phosphatase 121 U/L (38-126) 04/08/17 21:25 Troponin I < 0.0120 ng/mL (0.00-0.120) 04/08/17 21:25 NT-Pro-B Natriuret Pep 137 pg/mL (0-900) 04/08/17 21:25 Total Protein 6.8 g/dL (6.3-8.3) 04/08/17 21:25 Albumin 3.8 g/dL (3.5-5.0) 04/08/17 21:25 Globulin 3.0 gm/dL (2.2-3.9) 04/08/17 21:25 Albumin/Globulin Ratio 1.3 (1.0-2.1) 04/08/17 21:25 Urine Color Yellow (YELLOW) 04/09/17 08:00 Urine Clarity Clear (Clear) 04/09/17 08:00 Urine pH 5.0 (5.0-8.0) 04/09/17 08:00 Ur Specific [place] 1.031 (1.003-1.030) H 04/09/17 08:00 Urine Protein Negative mg/dL (NEGATIVE) 04/09/17 08:00 Urine Glucose (UA) 3+ mg/dL (Normal) H 04/09/17 08:00 Urine Ketones Trace mg/dL (NEGATIVE) 04/09/17 08:00 Urine Blood Negative (NEGATIVE) 04/09/17 08:00 Urine Nitrate Negative (NEGATIVE) 04/09/17 08:00 Urine Bilirubin Negative (NEGATIVE) 04/09/17 08:00 Urine Urobilinogen Normal mg/dL (0.2-1.0) 04/09/17 08:00 Ur Leukocyte Esterase Trace [place]/uL (Negative) 04/09/17 08:00 Urine WBC (Auto) 2 /hpf (0-5) 04/09/17 08:00 Urine RBC (Auto) 2 /hpf (0-3) 04/09/17 08:00 Ur Squamous Epith Cells 2 /hpf (0-5) 04/09/17 08:00 - Hospital Course Hospital Course: A/P 62 yr old female admitted for exc. asthma/ bronchitis Pt clinically improved after treatment spo2 -95% without oxygen stable for discharge home today and f/u with me in 1 week Discharge plan discussed with patient who understands and agrees with plan Pt instructed to returns to ED if symptoms returns or any other concerning symptoms Discharge Exam - Head Exam Head Exam: ATRAUMATIC, NORMAL INSPECTION, NORMOCEPHALIC Discharge Plan - Discharge Medications Prescriptions: Fluticasone/Salmeterol 250/50 [Advair Diskus 250/50] 1 puff INH BID #1 puff Amoxicillin/Clavulanate [Augmentin 875 MG-125 MG] 1 tab PO BID #10 tab Promethazine [Phenergan Syrup] 6.25 mg PO Q6 PRN #8 oz PRN Reason: Cough Montelukast [Singulair] 10 mg PO HS #30 tab Albuterol HFA [Ventolin HFA 90 mcg/actuation (8 g)] 1 puff IH QID PRN #1 PRN Reason: Wheezing - Follow Up Plan Condition: FAIR Disposition: HOME/ ROUTINE Instructions: Promethazine (By mouth), Albuterol (By breathing), Amoxicillin/ Clavulanate Potassium (By mouth), Montelukast (By mouth), Fluticasone/ Salmeterol (By breathing), Asthma (DC), Diabetic Foot Care (DC), Basic Carbohydrate Counting (DC), Meal Planning with the Plate Method (DC), Meal Planning with Diabetes Exchanges (DC) Additional Instructions: f/u with Dr. Jensen office in 1 week F/u with Dr. Yarbrough office in 1 week continue medication as per med. rec. Referrals: Agus Reza MD [Staff Provider] - Israel Asher MD [Staff Provider] -
== END 2017-04-13 13:55 | disposition home or self-care (01) | DRG 88 ==
LOC: C.ER 20:36 → C.9E 23:07 → C.6T 23:27
PROVIDERS: ADMIT Internal Medicine; ATTEND Internal Medicine
DX: J44.1 Chronic obstructive pulmonary disease with (acute) exacerbation (principal); J45.902 Unspecified asthma with status asthmaticus; D64.9 Anemia, unspecified; I10 Essential (primary) hypertension; E89.0 Postprocedural hypothyroidism; E11.9 Type 2 diabetes mellitus without complications; M19.90 Unspecified osteoarthritis, unspecified site; Z85.850 Personal history of malignant neoplasm of thyroid; Z86.010 Personal history of colon polyps; Z90.49 Acquired absence of other specified parts of digestive tract; Z98.84 Bariatric surgery status

== ENCOUNTER 2017-10-26 08:31 | Emergency (ER) | payer MEDICAID ==
[2017-10-26 08:32] VITALS: BMI 27.9
[2017-10-26 08:50] VITALS: BP 151/81; PULSE 82; TEMP 99; O2SAT 97
[2017-10-26] MEDS ORDERED: Oxycodone/Acetaminophen 5/325 mg Tab PO STA (09:20)
--- NOTE | 2017-10-26 09:22 | C.PDOC ---
History Of Present Illness CHRONIC L WRIST PAIN X 3 WEEKS. NO TRAUMA. PAIN NEAR WRIST ON THUMB SIDE WORSE W THUMB MOVEMENT OR FOREARM ROTATION. NO SWELLING. LIMITED RELIEF MOTRIN 600 MG. PENDING CLINIC APPT EXAM NONTOXIC EXT L WRIST ATRAUM NO FOCAL TEND NO DEFORM REPRODUC PAIN W SUPINATION AND THUMB ROM. SKIN INTACT NEURO INTACT Time Seen by Provider: 10/26/17 09:13 Chief Complaint (Nursing): Finger,Hand,&Wrist History Per: Patient History/Exam Limitations: no limitations Onset/Duration Of Symptoms: Days (3 weeks) Current Symptoms Are (Timing): Still Present Exacerbating Factor(s): Movement (movement of left thumb or forearm rotation) Recent travel outside of the [place]: No Past Medical History Reviewed: Historical Data, Nursing Documentation, Vital Signs Vital Signs: Last Vital Signs Temp 99 F 10/26/17 08:46 Pulse 82 10/26/17 08:46 Resp 16 10/26/17 09:49 BP 151/81 H 10/26/17 08:46 Pulse Ox 97 10/26/17 09:23 - Medical History PMH: Anemia, Anxiety, Arthritis, Asthma, Depression (on therapy and meds), Diabetes, Fractures (LEFT LEG), Gastritis, Gastrointestinal Ulcer, Gall Bladder Disease, HTN, Hyperthyroidism, Hypothyroidism (S\P THYROIDECTOMY FOR CANCER), Kidney Stones, Malignancy (Thyroid), Pancreatitis, Chronic Kidney Disease Surgical History: Cholecystectomy, Endoscopy - [facility] Procedures APPLICATION OF SPLINT (12/01/14) CYSTOSCOPY NEC (07/21/13) EXCISION OF STOMACH, ENDO, DIAGN (04/06/16) GROUP PSYCHOTHERAPY (10/02/16) INDIVID PSYCHOTHERAP NEC (04/03/14) LAPAROSCOP LYSIS-PERITONEAL ADHES (05/11/15) LAPAROSCOPIC CHOLECYSTECTOMY (05/11/15) OTHER GROUP THERAPY (04/03/14) PERCUTANEOUS ABDOMINAL DRAINAGE (05/11/15) REMOV URETERAL DRAIN (07/21/13) URETERAL CATHETERIZATION (07/02/13) Family History: States: No Known Family Hx - Social History Hx Tobacco Use: No Hx Alcohol Use: No Hx Substance Use: No - Immunization History Hx Tetanus Toxoid Vaccination: No Hx Influenza Vaccination: No Hx Pneumococcal Vaccination: No Review Of Systems Except As Marked, All Systems Reviewed And Found Negative. Cardiovascular: Negative for: Chest Pain Musculoskeletal: Positive for: Other ((+) left wrist pain). Negative for: Shoulder Pain Neurological: Negative for: Weakness, Numbness Physical Exam - Physical Exam Appears: Non-toxic, No Acute Distress Skin: Warm, Dry, No Rash Head: Atraumatic, Normacephalic Oral Mucosa: Moist Chest: Symmetrical, No Tenderness Respiratory: Normal Breath Sounds Extremity: Capillary Refill (<2 secs), Other (Left Wrist - ATRAUM. No focal tenderness. No deformity. Reproducible pain with supination and thumb ROM.) Neurological/Psych: Oriented x3, Normal Speech, Normal Motor, Normal Sensation, Normal Reflexes ED Course And Treatment O2 Sat by Pulse Oximetry: 97 (RA) Pulse Ox Interpretation: Normal Medical Decision Making Medical Decision Making: PLAN: * Percocet PO * Zofran PO Disposition Counseled Patient/Family Regarding: Diagnosis, Need For Followup, Rx Given - Disposition Referrals: [facility] [Outside] [facility] [Outside] Disposition: HOME/ ROUTINE Disposition Time: 09:22 Condition: IMPROVED Prescriptions: Acetaminophen/Codeine [Tylenol/Codeine 300 MG/30 MG] 2 tab PO Q6H #20 tab Instructions: Wrist Sprain (ED) Forms: uMentioned (Pashto) - Clinical Impression Clinical Impression: Wrist pain - Scribe Statement The provider has reviewed the documentation as recorded by the Scribe Yue Perez Provider Attestation: All medical record entries made by the Scribe were at my direction and personally dictated by me. I have reviewed the chart and agree that the record accurately reflects my personal performance of the history, physical exam, medical decision making, and the department course for this patient. I have also personally directed, reviewed, and agree with the discharge instructions and disposition. Orthopedic Care Application Of:: Thumb Spica Splint
[2017-10-26] MEDS ORDERED: Oxycodone/Acetaminophen 5/325 mg Tab ONE (09:24)
[2017-10-26 09:50] VITALS: RESP 16
== END 2017-10-26 09:49 | disposition home or self-care (01) ==
LOC: C.ER 08:31
DX: M25.532 Pain in left wrist (principal)

== ENCOUNTER 2017-10-28 08:24 | Emergency (ER) | payer MEDICAID ==
[2017-10-28 08:33] VITALS: BP 118/79; PULSE 100; RESP 22; TEMP 98.3; O2SAT 92
== END 2017-10-28 08:31 | disposition left against medical advice (07) ==
LOC: C.ER 08:24
DX: Z02.89 Encounter for other administrative examinations (principal); R06.02 Shortness of breath

== ENCOUNTER 2017-11-23 09:01 | Emergency (ER) | payer MEDICAID ==
[2017-11-23 09:45] VITALS: BMI 27.4
[2017-11-23 09:55] VITALS: BP 132/85; PULSE 78; RESP 18; TEMP 98.7; O2SAT 100
--- NOTE | 2017-11-23 10:35 | C.PDOC ---
History Of Present Illness 62 y/o female presents to ED with complaint of chronic left wrist pain radiating to thumb for 1 month. 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 Patient denies recent injury or any other complaints at this time. Chief Complaint (Nursing): Finger,Hand,&Wrist History Per: Patient History/Exam Limitations: no limitations Onset/Duration Of Symptoms: Days Current Symptoms Are (Timing): Still Present Quality: "Pain" Past Medical History Reviewed: Historical Data, Nursing Documentation, Vital Signs Vital Signs: Last Vital Signs Temp 98.7 F 11/23/17 09:54 Pulse 78 11/23/17 09:54 Resp 18 11/23/17 09:54 BP 132/85 11/23/17 09:54 Pulse Ox 100 11/23/17 10:35 - Medical History PMH: Anemia, Anxiety, Arthritis, Asthma, Depression, Diabetes, Fractures (LEFT LEG), Gastritis, Gastrointestinal Ulcer, Gall Bladder Disease, HTN, Hyperthyroidism, Kidney Stones, Malignancy (Thyroid), Pancreatitis, Chronic Kidney Disease Comment Only: Hypothyroidism (S\\P THYROIDECTOMY FOR CANCER) Surgical History: Cholecystectomy, Endoscopy - [facility] Procedures APPLICATION OF SPLINT (12/01/14) CYSTOSCOPY NEC (07/21/13) EXCISION OF STOMACH, ENDO, DIAGN (04/06/16) GROUP PSYCHOTHERAPY (10/02/16) INDIVID PSYCHOTHERAP NEC (04/03/14) LAPAROSCOP LYSIS-PERITONEAL ADHES (05/11/15) LAPAROSCOPIC CHOLECYSTECTOMY (05/11/15) OTHER GROUP THERAPY (04/03/14) PERCUTANEOUS ABDOMINAL DRAINAGE (05/11/15) REMOV URETERAL DRAIN (07/21/13) URETERAL CATHETERIZATION (07/02/13) Family History: States: No Known Family Hx - Social History Hx Tobacco Use: No Hx Alcohol Use: No Hx Substance Use: No - Immunization History Hx Tetanus Toxoid Vaccination: No Hx Influenza Vaccination: No Hx Pneumococcal Vaccination: Yes Review Of Systems Gastrointestinal: Negative for: Nausea, Vomiting Musculoskeletal: Positive for: Hand Pain Skin: Negative for: Rash Neurological: Positive for: Weakness, Numbness Physical Exam - Physical Exam Appears: Non-toxic, No Acute Distress Skin: Warm, Dry, No Rash Head: Atraumatic, Normacephalic Eye(s): bilateral: Normal Inspection Oral Mucosa: Moist Neck: Supple Extremity: Capillary Refill (<2 seconds), No Deformity, No Swelling, Other ( 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 (+)Tinels signs over L wrist ) Pulses: Left Radial: Normal, Right Radial: Normal Neurological/Psych: Oriented x3, Normal Motor, Normal Sensation ED Course And Treatment O2 Sat by Pulse Oximetry: 100 (RA) Medical Decision Making Medical Decision Making: Impression: Carpal tunnel syndrome Plan: Immobilizer placed to left wrist and advised follow up with ortho Patient placed on non-steroidal medication Disposition - Disposition Referrals: Pedro Parker MD [Staff Provider] - Disposition: HOME/ ROUTINE Disposition Time: 10:32 Condition: GOOD Additional Instructions: apply ice packs,wear wrist splint.Take NSAIDS,f/u with ortho Prescriptions: Naproxen [Naprosyn] 500 mg PO BID #20 tablet Forms: [employer] (Kinyarwanda) - Clinical Impression Clinical Impression: Carpal tunnel syndrome of left wrist - Scribe Statement The provider has reviewed the documentation as recorded by the Rachana Geronimo All medical record entries made by the Patriciaibsanthosh were at my direction and personally dictated by me. I have reviewed the chart and agree that the record accurately reflects my personal performance of the history, physical exam, medical decision making, and the department course for this patient. I have also personally directed, reviewed, and agree with the discharge instructions and disposition.
== END 2017-11-23 10:40 | disposition home or self-care (01) ==
LOC: C.ER 09:01
DX: G56.02 Carpal tunnel syndrome, left upper limb (principal)

== ENCOUNTER 2018-03-26 10:02 | Inpatient (IN) | payer MEDICAID, OTHER ==
[2018-03-26 10:03] VITALS: BMI 27.4
[2018-03-26 11:07] LABS: URINE BILIRUBIN NEGATIVE (NEGATIVE); URINE BLOOD 1+ (NEGATIVE); URINE CLARITY Clear (Clear); URINE COLOR Yellow (YELLOW); URINE GLUCOSE (UA) NORMAL (Normal); URINE LEUKOCYTE ESTERASE NEG Leu/uL (Negative); URINE PROTEIN NEGATIVE (NEGATIVE); URINE UROBILINOGEN NORMAL mg/dL (0.2-1.0)
[2018-03-26 11:09] LABS: BASO # 0.1 K/uL (0.0-0.2); BASO % 0.9 % (0.0-2.0); EOS # 0.2 K/uL (0.0-0.7); EOS % 3.5 % (0.0-4.0); HEMOGLOBIN 13.6 g/dL (11.0-16.0); LYMPH # 1.6 K/uL (1.0-4.3); MEAN CELL VOLUME 79.7 fL (81.0-99.0); MEAN CORPUSCULAR HEMOGLOBIN 26.5 pg (27.0-31.0); MEAN CORPUSCULAR HGB CONC 33.3 g/dL (33.0-37.0); MEAN PLATELET VOLUME 8.6 fL (7.2-11.7); MONO # 0.5 K/uL (0.0-0.8); MONO % 8.6 % (0.0-10.0); NEUT # 3.3 K/uL (1.8-7.0); RBC 5.14 Mil/uL (3.80-5.20); RED CELL DISTRIBUTION WIDTH 15.6 % (11.5-14.5); SQUAMOUS EPITHIAL < 1 /hpf (0-5); WHITE BLOOD COUNT 5.7 K/uL (4.8-10.8)
[2018-03-26 11:14] LABS: GFR AFRICAN-AMERICAN > 60; GFR NON-AFRICAN AMERICAN > 60
[2018-03-26 11:19] LABS: ALBUMIN 4.3 g/dL (3.5-5.0); ALT/SGPT 24 U/L (9-52); AST/SGOT 26 U/L (14-36); BLOOD UREA NITROGEN 15 mg/dL (7-17)
[2018-03-26 11:30] LABS: BARBITURATES, UR NEGATIVE (NEGATIVE); BENZODIAZEPINES, UR NEGATIVE (NEGATIVE); OPIATES, UR NEGATIVE (NEGATIVE); PHENCYCLIDINE, UR NEGATIVE (NEGATIVE)
[2018-03-26 11:34] LABS: ALB/GLOB RATIO 1.3 (1.0-2.1)
--- NOTE | 2018-03-26 12:46 | PCM.BM ---
<Laury Boykin - Last Filed: 03/26/18 12:44> Treatment Plan Problems - Problems identified on initial assessmt Problem 1 Date Initiated: 03/26/18 Time Initiated: 12:45 Depression Date Initiated: 03/26/18 Time Initiated: 12:45 Anxiety Date Initiated: 03/26/18 Time Initiated: 12:45 Treatment assets and liabiliti Patient Assests: cooperative, insightful, self-reliant, ADL independent, good support system, negotiates basic needs Patient Liabilities: financial problems, medical problems - Milieu Protocol Maintain good personal hygiene: daily Encourage regular showers, daily Remind patient to perform daily oral care, daily Assist patient to perform ADL's Maintain personal safety: every shift Educate patient to report safety concerns to staff, every shift Monitor environment for contraband/sharps Medication safety: Monitor for expected outcome, potential side effects: every shift, Assess barriers to learning: every shift, Assess readiness for medication education: every shift <Pedro Espinosa - Last Filed: 03/29/18 11:23> - Diagnosis (1) MDD (major depressive disorder), recurrent episode Status: Acute Interventions: 03/29/18 11:23 * Assess/adjust medications daily and /or as needed * See patient on an individual basis 7x/week to assess symptoms of depression * Monitor for side effects & effectiveness of medications * <Sulema Valentine - Last Filed: 03/29/18 13:28> Family Contact Family involvement: Family/SO is involved Family contact: Patient declines to allow family contact at present - Goals for Treatment Patient goals for treatment: "I want to be referred to the [facility]." Discharge/Continuing Care - Education Needs Education Needs: Patient Medication, Patient Coping Skills - Discharge Discharge Criteria: Tolerates medication w/o severe side effects, Reduction of target symptoms Discharge to:: Home, With Family - Treatment Team Participation Discussed with Family/SO: No Was Patient/Family/SO present at Treatment Team Meeting: Yes
[2018-03-26] MEDS ORDERED: Albuterol HFA 90 mcg/actuation (8 g) IH PRN (12:53)
--- NOTE | 2018-03-26 12:53 | PCM.PSYCH ---
Initial Psychiatric Evaluation - Initial Psychiatric Evaluation Type of Admission: Voluntary Legal Status: Capacity Chief Complaint (in patient's own words): I was feeling depressed and suicidal.' History of Present Illness and Precipitating Events: Pt is a 63 year old CF, who lives with her son and grandson, came to the hospital for worsening depression and S/I with no plan. Heel Breaster is familiar with this patient. Patient has been to [facility] few times depressed mood. She was last discharged from [facility] last year. She was also admitted on medical floor last year for an drug overdose. Patient reports that soon after discharge from the hospital she started following up with [facility]. However her insurance was on 10/04. Pt states that since she lost her insurance, she has not been able to afford medications or treatment, so the depression has worsened in addition to anxiety and panic attacks. Pt states that she cannot identify a specific trigger for recent thoughts of suicide, however has been "overwhelmed by everything. I'm stressed, anxious, not having insurance, being a caregiver for my granddaughter..I feel like I can't handle anything right now." Pt reports that she has been having suicidal thoughts "the past few days, but it 's been building." Pt reports a history of 6 suicide attempts in her lifetime, with the last being an overdose on Xanax approximately 1 year ago, prompting admission to (per records, drug overdose in 2016). Pt denies current substance abuse and history of same. Pt denies history of trauma. Pt lives with her son and his child. Pt presents as unkempt, but not malodorous. Pt reports depressed mood and anhedonia. She reports feelings of hopelessness and helplessness. She remained tearful and depressed throughout the interview. She denies any auditory or visual hallucinations or any paranoia. PMH: Diabetes (type 2), Asthma, HTN, and hypercholesterolemia, h/o Thyroid cancer Current Medications: Active Medications Generic Name Dose Route Start Last Admin Trade Name Freq PRN Reason Stop Dose Admin Pneumococcal Polyvalent Vaccine 0.5 ml 03/31/18 10:00 Pneumovax 23 Vaccine IM 03/31/18 10:01 .ONCE ONE Past Psychiatric History - Past Psychiatric History Previous Treatment History: Inpatient Pertinent Medical Hx (Current Medical&Sleep Prob, Allergies): Allergies Allergy/AdvReac Type Severity Reaction Status Date / Time methylprednisolone AdvReac NAUSEA Verified 03/26/18 10:09 [From Solu-Medrol] Levothyroxine [Synthroid] 0.175 mg PO DAILY 03/03/16 metFORMIN [glucOPHAGE] 500 mg PO BID #60 tab 09/22/16 ALPRAZolam [Xanax] 1 mg PO TID 04/01/17 Albuterol HFA [Ventolin HFA 90 mcg/actuation (8 g)] 1 puff IH QID PRN #1 Fluticasone/Salmeterol 250/50 [Advair Diskus 250/50] 1 puff INH BID #1 puff Montelukast [Singulair] 10 mg PO HS #30 tab 04/13/17 Acetaminophen/Codeine [Tylenol/Codeine 300 MG/30 MG] 2 tab PO Q6H #20 tab amLODIPine [Norvasc] 5 mg PO DAILY 10/26/17 Naproxen [Naprosyn] 500 mg PO BID #20 tablet 11/23/17 Review of Systems - Review of Systems All systems: reviewed and no additional remarkable complaints except - Psychiatric Psychiatric: Anxiety, Depression, Irritability, Suicidal Ideation Mental Status Examination - Personal Presentation Personal Presentation: Looks stated age - Affect Affect: Constricted, Depressed - Motor Activity Motor Activity: Calm - Reliability in Providing Information Reliability in Providing Information: Good - Speech Speech: Organized - Mood Mood: Depressed, Anxious - Formal Thought Process Formal Thought Process: No Impairment - Obsessions/Compulsions Obsessions: No Compulsions: No - Cognitive Functions Orientation: Person, Place, Situation, Time Sensorium: Alert Attention/Concentration: Attentive Abstract Thinking: [place] Estimate of Intelligence: Below average Judgement: Imparied, as evidence by: Poor judgement, Imparied, as evidence by: Lack of insight into illness - Risk Risk: Suicidal, Diminished functioning - Strength & Assets Inventory Strength & Assets Inventory: Family support DSM 5 DX - DSM 5 DSM 5 Diagnosis: Major depressive disorder recurrent severe without psychotic features Gen. anxiety disorder - Recommended/Plan of Treatment Treatment Recommendations and Plan of Treatment: Major depressive disorder recurrent severe without psychotic features Gen. anxiety disorder -Supportive therapy, milieu therapy -Psychoeducation -Abilify 5 mg by mouth daily at bedtime -Trazodone 50 mg by mouth daily at bedtime -Neurontin 300 mg by mouth 2 times a day DM: -continue prescribed medications -Monitor signs and symptoms Asthma -continue prescribed medications -Monitor signs and symptoms Hypothyroidism -continue prescribed medications -Monitor signs and symptoms HTN -continue prescribed medications -Monitor signs and symptoms
--- NOTE | 2018-03-26 14:09 | C.PDOC ---
History Of Present Illness 63 y/o female with history of HTN, DM, Thyroid CA and Depression presents to ED with c/o feeling depressed. Patient reports she has been off medication since secondary to insurance issues. Admits to Suicidal ideation. H/o overdose last year. Denies cp, headache, n/v, dizziness, lightheadedness or any other complaints at this time. Time Seen by Provider: 03/26/18 10:21 Chief Complaint (Nursing): Psychiatric Evaluation History Per: Patient History/Exam Limitations: no limitations Onset/Duration Of Symptoms: Days Current Symptoms Are (Timing): Still Present Suicide/Self Injury Attempted (Context): None Modifying Factor(s): None Associated Symptoms: Depression, Suicidal Thoughts Past Medical History Reviewed: Historical Data, Nursing Documentation, Vital Signs Vital Signs: Last Vital Signs Temp 98.2 F 03/26/18 12:39 Pulse 79 03/26/18 15:50 Resp 18 03/26/18 12:39 BP 156/95 H 03/26/18 15:50 Pulse Ox 98 03/26/18 14:20 - Medical History PMH: Anemia, Anxiety, Arthritis, Asthma, Depression, Diabetes, Fractures (LEFT LEG), Gastritis, Gastrointestinal Ulcer, Gall Bladder Disease, HTN, Hyperthyroidism, Kidney Stones, Malignancy (Thyroid), Pancreatitis, Chronic Kidney Disease Comment Only: Hypothyroidism (S\P THYROIDECTOMY FOR CANCER) Surgical History: Cholecystectomy, Endoscopy - [facility] Procedures APPLICATION OF SPLINT (12/01/14) CYSTOSCOPY NEC (07/21/13) EXCISION OF STOMACH, ENDO, DIAGN (04/06/16) GROUP PSYCHOTHERAPY (10/02/16) INDIVID PSYCHOTHERAP NEC (04/03/14) LAPAROSCOP LYSIS-PERITONEAL ADHES (05/11/15) LAPAROSCOPIC CHOLECYSTECTOMY (05/11/15) OTHER GROUP THERAPY (04/03/14) PERCUTANEOUS ABDOMINAL DRAINAGE (05/11/15) REMOV URETERAL DRAIN (07/21/13) URETERAL CATHETERIZATION (07/02/13) Family History: States: No Known Family Hx - Social History Hx Tobacco Use: No Hx Alcohol Use: No Hx Substance Use: No - Immunization History Hx Tetanus Toxoid Vaccination: No Hx Influenza Vaccination: No Hx Pneumococcal Vaccination: No Review Of Systems Constitutional: Negative for: Fever, Chills Cardiovascular: Negative for: Chest Pain Respiratory: Negative for: Shortness of Breath Gastrointestinal: Negative for: Nausea, Vomiting Skin: Negative for: Rash Psych: Positive for: Depression, Suicidal ideation Physical Exam - Physical Exam Appears: Non-toxic, No Acute Distress, Other (Tearful) Skin: Warm, Dry, No Rash Head: Atraumatic, Normacephalic Eye(s): bilateral: Normal Inspection, EOMI Oral Mucosa: Moist Neck: Normal ROM, Supple Chest: Symmetrical Cardiovascular: Rhythm Regular Respiratory: Normal Breath Sounds, No Accessory Muscle Use, No Rales, No Rhonchi , No Wheezing Gastrointestinal/Abdominal: Soft, No Tenderness, No Guarding, No Rebound Extremity: Normal ROM Neurological/Psych: Oriented x3, Normal Speech, Normal Cognition ED Course And Treatment - Laboratory Results Result Diagrams: 03/26/18 10:56 03/26/18 10:56 O2 Sat by Pulse Oximetry: 98 (RA) Pulse Ox Interpretation: Normal Progress Note: Patient medically cleared for admission. Medical consult suggested to restart chronic medication. Disposition - Disposition Disposition: HOSPITALIZED Disposition Time: 13:17 Condition: STABLE - Clinical Impression Clinical Impression: MDD (major depressive disorder), recurrent episode - PA / HEALTH PRACTICE MANAGER / Resident Statement MD/DO has reviewed & agrees with the documentation as recorded. - Scribe Statement The provider has reviewed the documentation as recorded by the Patriciaibsanthosh Geronimo All medical record entries made by the Patriciaibsanthosh were at my direction and personally dictated by me. I have reviewed the chart and agree that the record accurately reflects my personal performance of the history, physical exam, medical decision making, and the department course for this patient. I have also personally directed, reviewed, and agree with the discharge instructions and disposition.
[2018-03-26] MEDS: Fluticasone-Salmeterol 250-50mcg Diskus INH SCH ×2 (17:22→21:00)
[2018-03-26] MEDS: Naproxen 550 mg Tab PO SCH (17:22)
[2018-03-27] MEDS: Levothyroxine 175 MCG TAB PO SCH (06:20)
[2018-03-27] MEDS: Fluticasone-Salmeterol 250-50mcg Diskus INH SCH ×2 (07:43→21:15)
[2018-03-27] MEDS: Naproxen 550 mg Tab PO SCH ×2 (09:36→17:17)
--- NOTE | 2018-03-27 15:44 | PCM.PYCHPN ---
Psychiatric Progress Note - Psychiatric Progress Note Patient seen today, length of contact: 15 minutes Patient Chief Complaint: "I'm feeling better" Problems Identified/Issues Discussed: Patient was seen. Chart was reviewed important content noted. Nurse input received. Patient has no new complaints. No events overnight. Patient slept well and is eating well. Patient still has depressive symptoms. Denies suicidal or homicidal ideations. Patient does not report hallucinations. No delusions elicited. No paranoia elicited. Patient has remained in good clinical and behavioral control. Symptoms are improving, but needs more time to stabilize. Patient is finding medications beneficial and would like to continue with treatment plan. Patient appreciated that treatment team is trying to help. Medication Change: No Medical Record Reviewed: No Mental Status Examination - Cognitive Function Orientation: Person, Place, Situation, Time Memory: Intact Attention: Poor Concentration: WNL Association: WNL Fund of Knowledge: WNL - Mood Mood: Depressed, Anxious - Affect Affect: Constricted, Depressed - Speech Speech: Appropriate - Formal Thought Process Formal Thought Process: No Impairment Psychotic Thoughts and Behaviors: denied - Suicidal Ideation Suicidal Ideation: No Plan: denied - Homicidal Ideation Homicidal Ideation: No Plan: denied Goal/Treatment Plan - Goal/Treatment Plan Need for Continued Stay: Severe depression anxiety, Discharge may exacerbated symptoms Progress Toward Problem(s) and Goals/Treatment Plan: Continue current treatment as per primary team. Supportive therapy provided Therapy in milieu Psychoeducation provided Estimated Date of D/C: 04/01/18
[2018-03-28] MEDS: Levothyroxine 175 MCG TAB PO SCH (06:39)
[2018-03-28] MEDS: Fluticasone-Salmeterol 250-50mcg Diskus INH SCH ×2 (08:00→20:50)
[2018-03-28] MEDS: Naproxen 550 mg Tab PO SCH ×2 (09:47→17:18)
--- NOTE | 2018-03-28 17:54 | PCM.PYCHPN ---
Psychiatric Progress Note - Psychiatric Progress Note Patient seen today, length of contact: 15 minutes Patient Chief Complaint: "I'm feeling better" Problems Identified/Issues Discussed: Patient was seen. Chart was reviewed important content noted. Nurse input received. Patient has no new complaints. No events overnight. Patient slept well and is eating well. Patient still has depressive symptoms. Symptoms are improving, but needs more time to stabilize. Patient is finding medications beneficial and would like to continue with treatment plan. Patient appreciated that treatment team is trying to help. DSM 5 Symptoms Update: MDD, Recurrent severe, without psychotic features Medication Change: No Medical Record Reviewed: No Mental Status Examination - Cognitive Function Orientation: Person, Place, Situation, Time Memory: Intact Attention: WNL Concentration: WNL Association: WNL Fund of Knowledge: [facility] Decription of patient's judgement and insights: fair/fair - Mood Mood: Depressed, Anxious - Affect Affect: Constricted, Depressed - Speech Speech: Appropriate - Formal Thought Process Formal Thought Process: No Impairment Psychotic Thoughts and Behaviors: denied - Suicidal Ideation Suicidal Ideation: No Plan: denied - Homicidal Ideation Homicidal Ideation: No Plan: denied Goal/Treatment Plan - Goal/Treatment Plan Need for Continued Stay: Severe depression anxiety, Discharge may exacerbated symptoms Progress Toward Problem(s) and Goals/Treatment Plan: Continue current treatment as per primary team. Supportive therapy provided Therapy in milieu Psychoeducation provided Estimated Date of D/C: 04/01/18 - Smoking Cessation Smoking Cessation Initiated: Yes
[2018-03-29] MEDS: Levothyroxine 175 MCG TAB PO SCH (06:39)
[2018-03-29] MEDS: Fluticasone-Salmeterol 250-50mcg Diskus INH SCH ×2 (08:54→20:44)
[2018-03-29] MEDS: Naproxen 550 mg Tab PO SCH ×2 (09:59→17:52)
--- NOTE | 2018-03-29 10:26 | PCM.PYCHPN ---
Psychiatric Progress Note - Psychiatric Progress Note Patient seen today, length of contact: 15 minutes Patient Chief Complaint: I was feeling depressed.' Problems Identified/Issues Discussed: Patient seen and evaluated, chart reviewed and discussed with the nurse. Pt still reports depressed mood but reports some improvement in the feelings of hopelessness and helplessness. She also reports some improvement in sleep. However She remained isolated and withdrawn. She is taking medications and denies any side effects Symptoms are improving but she needs more time for stabilization. Supportive therapy and psychoeducation were given. Medication Change: Yes Medical Record Reviewed: Yes Mental Status Examination - Cognitive Function Orientation: Person, Place, Situation, Time Memory: Intact Attention: WNL Concentration: Poor Association: WNL Fund of Knowledge: Poor - Mood Mood: Depressed, Anxious - Affect Affect: Constricted, Depressed - Speech Speech: Appropriate, Soft - Formal Thought Process Formal Thought Process: No Impairment - Suicidal Ideation Suicidal Ideation: No - Homicidal Ideation Homicidal Ideation: No Goal/Treatment Plan - Goal/Treatment Plan Need for Continued Stay: Severe depression anxiety, Discharge may exacerbated symptoms Progress Toward Problem(s) and Goals/Treatment Plan: Major depressive disorder recurrent severe without psychotic features Gen. anxiety disorder -Supportive therapy, milieu therapy -Psychoeducation -Abilify 5 mg by mouth daily at bedtime -Trazodone 50 mg by mouth daily at bedtime -Neurontin 300 mg by mouth 2 times a day -Seroquel 100 mg PO QHS DM: -continue prescribed medications -Monitor signs and symptoms Asthma -continue prescribed medications -Monitor signs and symptoms Hypothyroidism -continue prescribed medications -Monitor signs and symptoms HTN -continue prescribed medications -Monitor signs and symptoms Estimated Date of D/C: 04/01/18 - Smoking Cessation Smoking Cessation Initiated: No
[2018-03-30] MEDS: Levothyroxine 175 MCG TAB PO SCH (05:59)
[2018-03-30 06:31] VITALS: O2SAT 97
[2018-03-30] MEDS: Fluticasone-Salmeterol 250-50mcg Diskus INH SCH ×2 (08:28→20:22)
[2018-03-30] MEDS: Naproxen 550 mg Tab PO SCH ×2 (10:44→17:06)
--- NOTE | 2018-03-30 14:30 | PCM.PYCHPN ---
Psychiatric Progress Note - Psychiatric Progress Note Patient seen today, length of contact: 15 minutes Patient Chief Complaint: I was feeling depressed.' Problems Identified/Issues Discussed: Patient seen and evaluated, chart reviewed and discussed with the nurse. Pt still reports depressed mood but reports some improvement in the feelings of hopelessness and helplessness. She also reports some improvement in sleep. However She remained isolated and withdrawn. She is taking medications and denies any side effects Symptoms are improving but she needs more time for stabilization. Supportive therapy and psychoeducation were given. Medication Change: Yes Medical Record Reviewed: Yes Mental Status Examination - Cognitive Function Orientation: Person, Place, Situation, Time Memory: Intact Attention: WNL Concentration: Poor Association: WNL Fund of Knowledge: Poor - Mood Mood: Depressed, Anxious - Affect Affect: Constricted, Depressed - Speech Speech: Appropriate, Soft - Formal Thought Process Formal Thought Process: No Impairment - Suicidal Ideation Suicidal Ideation: No - Homicidal Ideation Homicidal Ideation: No Goal/Treatment Plan - Goal/Treatment Plan Need for Continued Stay: Severe depression anxiety, Discharge may exacerbated symptoms Progress Toward Problem(s) and Goals/Treatment Plan: Major depressive disorder recurrent severe without psychotic features Gen. anxiety disorder -Supportive therapy, milieu therapy -Psychoeducation -Abilify 10 mg by mouth daily at bedtime -Trazodone 50 mg by mouth daily at bedtime -Neurontin 300 mg by mouth 2 times a day -DC Seroquel 100 mg PO QHS DM: -continue prescribed medications -Monitor signs and symptoms Asthma -continue prescribed medications -Monitor signs and symptoms Hypothyroidism -continue prescribed medications -Monitor signs and symptoms HTN -continue prescribed medications -Monitor signs and symptoms Estimated Date of D/C: 04/01/18
[2018-03-31] MEDS: Levothyroxine 175 MCG TAB PO SCH (06:05)
[2018-03-31 06:22] VITALS: TEMP 98.1
[2018-03-31] MEDS: Fluticasone-Salmeterol 250-50mcg Diskus INH SCH ×2 (08:05→20:26)
[2018-03-31] MEDS ORDERED: Pneumococcal 23-Valent Vaccine IM ONE (10:00)
[2018-03-31] MEDS: Naproxen 550 mg Tab PO SCH ×2 (10:32→17:22)
--- NOTE | 2018-03-31 18:00 | PCM.PYCHPN ---
Psychiatric Progress Note - Psychiatric Progress Note Patient seen today, length of contact: 15 minutes Patient Chief Complaint: I was feeling depressed.' Problems Identified/Issues Discussed: Patient seen and evaluated, chart reviewed and discussed with the nurse. Pt reports improvement in her depressed mood and feelings of hopelessness and helplessness. She reports some improvement in sleep, but asking for a sleep medication. She started socializing and no longer remained isolated and withdrawn. She is taking medications and denies any side effects Symptoms are improving but she needs more time for stabilization. Supportive therapy and psychoeducation were given. Medication Change: Yes Medical Record Reviewed: Yes Mental Status Examination - Cognitive Function Orientation: Person, Place, Situation, Time Memory: Intact Attention: WNL Concentration: WNL Association: WNL Fund of Knowledge: Poor - Mood Mood: Depressed, Anxious - Affect Affect: Constricted, Depressed - Speech Speech: Appropriate, Soft - Formal Thought Process Formal Thought Process: No Impairment - Suicidal Ideation Suicidal Ideation: No - Homicidal Ideation Homicidal Ideation: No Goal/Treatment Plan - Goal/Treatment Plan Need for Continued Stay: Severe depression anxiety, Discharge may exacerbated symptoms Progress Toward Problem(s) and Goals/Treatment Plan: Major depressive disorder recurrent severe without psychotic features Gen. anxiety disorder -Supportive therapy, milieu therapy -Psychoeducation -Abilify 10 mg by mouth daily at bedtime -Neurontin 300 mg by mouth 2 times a day -start Seroquel 50 mg PO QHS DM: -continue prescribed medications -Monitor signs and symptoms Asthma -continue prescribed medications -Monitor signs and symptoms Hypothyroidism -continue prescribed medications -Monitor signs and symptoms HTN -continue prescribed medications -Monitor signs and symptoms Estimated Date of D/C: 04/01/18 - Smoking Cessation Smoking Cessation Initiated: No
[2018-04-01] MEDS: Levothyroxine 175 MCG TAB PO SCH (06:23)
[2018-04-01 06:52] VITALS: BP 128/73; PULSE 82; RESP 18
[2018-04-01] MEDS: Fluticasone-Salmeterol 250-50mcg Diskus INH SCH (08:06)
--- NOTE | 2018-04-01 08:59 | PCM.PYCHDC ---
Mental Status Examination - Mental Status Examination Orientation: Person, Place, Situation, Time Memory: Intact Mood: Neutral Affect: Constricted Speech: Soft Attention: WNL Concentration: WNL Association: WNL Fund of Knowledge: WNL Formal Thought Process: No Impairment Description of patient's judgement and insight: good, fair Psychotic Thoughts and Behaviors: denies any AVH Suicidal Ideation: No Current Homicidal Ideation?: No Discharge Summary - Discharge Note Reason for Hospitalization: Pt is a 63 year old CF, who lives with her son and grandson, came to the hospital for worsening depression and S/I with no plan. Rehabilitation Engineer is familiar with this patient. Patient has been to [facility] few times depressed mood. She was last discharged from [facility] last year. She was also admitted on medical floor last year for an drug overdose. Patient reports that soon after discharge from the hospital she started following up with [facility]. However her insurance was on 10/04. Pt states that since she lost her insurance, she has not been able to afford medications or treatment, so the depression has worsened in addition to anxiety and panic attacks. Pt states that she cannot identify a specific trigger for recent thoughts of suicide, however has been "overwhelmed by everything. I'm stressed, anxious, not having insurance, being a caregiver for my granddaughter..I feel like I can't handle anything right now." Pt reports that she has been having suicidal thoughts "the past few days, but it 's been building." Pt reports a history of 6 suicide attempts in her lifetime, with the last being an overdose on Xanax approximately 1 year ago, prompting admission to (per records, drug overdose in 2016). Pt denies current substance abuse and history of same. Pt denies history of trauma. Pt lives with her son and his child. Pt presents as unkempt, but not malodorous. Pt reports depressed mood and anhedonia. She reports feelings of hopelessness and helplessness. She remained tearful and depressed throughout the interview. She denies any auditory or visual hallucinations or any paranoia. Laboratory Data: Abnormal Lab Results 04/01/18 07:44 POC Glucose (mg/dL) 138 H Consultations:: List each consultation separately and include: 1. Reason for request. 2. Findings. 3. Follow-up Summary of Hospital Course include:: 1. Description of specific treatment plan utilized for patients during their course of treatmen. 2. Summarize the time- course for resolution of acute symptoms and/or regressed behaviors. 3. Describe issues identified and worked on during hospitalization. 4. Describe medication utilized. 5. Describe medical problems identified and treated. 6. Reassessment of suicide risk Summary of Hospital Course: During the course of her stay, patient (pt) started progressively improving and no longer remained irritable, depressed, and suicidal. Her mood and anxiety were improved and she started attending groups and meetings and started socializing. Patient denied any feelings of hopelessness, helplessness, and worthlessness, denied any problem with the sleep or appetite, denied suicidal ideation or homicidal ideation. Pt denied any auditory or visual hallucinations. She denied any withdrawal symptoms. Some changes were made in her current medications and patient was discharged on following medications. She tolerated these medications very well and denied any side effects. She was discharged to the [facility]. - Diagnosis (1) MDD (major depressive disorder), recurrent episode Status: Acute - Final Diagnosis (DSM 5) Condition upon Discharge: STABLE DSM 5: Major depressive disorder recurrent severe without psychotic features Gen. anxiety disorder Disposition: HOME/ ROUTINE Follow-up Treatment Plan: Education: Pt was educated and counseled about the risks and benefits of taking and not taking medications. Pt was educated and counseled about the risks of drinking and abusing drugs. Pt was educated and counseled to go to the ER or call 911 if pt develop suicidal ideation or homicidal ideation, worsening of symptoms or severe side effects of the meds. Prescriptions/Medication Reconciliation: ARIPiprazole [Abilify] 10 mg PO HS #30 tab Gabapentin [Neurontin] 300 mg PO BID #60 cap QUEtiapine [SEROquel] 50 mg PO HS #30 tab - Smoking Cessation Smoking Cessation Medication prescribed: No - Antipsychotic Medications Pt discharged on 2 or more routine antipsychotic medications: No
[2018-04-01] MEDS: Naproxen 550 mg Tab PO SCH (09:13)
== END 2018-04-01 10:06 | disposition home or self-care (01) | DRG 885 ==
LOC: C.ER 10:02 → C.5E 11:49
PROVIDERS: ADMIT Psychiatry & Neurology Psychiatry; ATTEND Psychiatry & Neurology Psychiatry
PROC: GZ3ZZZZ Medication Management (ICD-10-PCS; principal; 2018-03-26)
PROC: GZHZZZZ Group Psychotherapy (ICD-10-PCS; 2018-03-26)
PROC: HZ59ZZZ Individual Psychotherapy for Substance Abuse Treatment, Supportive (ICD-10-PCS; 2018-03-26)
DX: F33.2 Major depressive disorder, recurrent severe without psychotic features (principal); R45.851 Suicidal ideations; F41.1 Generalized anxiety disorder; E11.22 Type 2 diabetes mellitus with diabetic chronic kidney disease; E89.0 Postprocedural hypothyroidism; I12.9 Hypertensive chronic kidney disease with stage 1 through stage 4 chronic kidney disease, or unspecified chronic kidney disease; N18.9 Chronic kidney disease, unspecified; J45.909 Unspecified asthma, uncomplicated; E78.00 Pure hypercholesterolemia, unspecified; Z79.899 Other long term (current) drug therapy; Z85.850 Personal history of malignant neoplasm of thyroid; Z87.11 Personal history of peptic ulcer disease; Z87.442 Personal history of urinary calculi; Z91.14 Patient's other noncompliance with medication regimen

== ENCOUNTER 2018-07-24 10:55 | Observation (INO) | payer MEDICAID ==
[2018-07-24 10:55] VITALS: BMI 27.4
[2018-07-24] MEDS ORDERED: Sodium Chloride 0.9% 1,000 ML IV ONE (11:29)
[2018-07-24] MEDS ORDERED: Morphine 4 MG/ML VIAL IV ONE (11:44)
--- NOTE | 2018-07-24 11:46 | C.PDOC ---
History Of Present Illness Pt is a 63 year old female patient with hx of pancreatitis, asthma, DM, thyroid cancer (in remission), HTN and PSHx of Cholecystectomy, gastric bypass surgery 15 yrs ago (Laurita-En Y surgery by Dr. Marshall at [facility] in [facility]--which has subsequently closed) and knee surgery presents to the ER with c/o RUQ abdominal pain radiating to the back that came on suddenly for past 1 week. Pt with no prior hx of similar symptoms. Patient reports pain is intermittent and has gotten more intense: 07/28. The pain feels sharp and dull. Associated symptom include: dizziness. Patient denies fever, nausea, vomiting and diarrhea. Patient notes she did not take her blood pressure medication last night and this morning. Pt does not know the name of her BP medication (and I could not determine it despite looking at several old charts). PMD is Dr. Still in [facility] clinic. Time Seen by Provider: 07/24/18 11:30 Chief Complaint (Nursing): Abdominal Pain History Per: Patient History/Exam Limitations: no limitations Onset/Duration Of Symptoms: Days (x1 week) Current Symptoms Are (Timing): Still Present Location Of Pain/Discomfort: RUQ Quality Of Discomfort: Sharp, Dull Associated Symptoms: Other (dizziness). denies: Fever, Nausea, Vomiting, Diarrhea Past Medical History Reviewed: Historical Data, Nursing Documentation, Vital Signs Vital Signs: Last Vital Signs Temp 98.6 F 07/24/18 11:18 Pulse 78 07/24/18 11:18 Resp 20 07/24/18 11:18 BP 174/102 H 07/24/18 11:18 Pulse Ox 98 07/24/18 11:18 - Medical History PMH: Anemia, Anxiety, Arthritis, Asthma, Depression, Diabetes, Fractures (LEFT LEG), Gastritis, Gastrointestinal Ulcer, Gall Bladder Disease, HTN, Hyperthyroidism, Kidney Stones, Malignancy (Thyroid), Pancreatitis, Chronic Kidney Disease Comment Only: Hypothyroidism (S\P THYROIDECTOMY FOR CANCER) Surgical History: Cholecystectomy, Endoscopy Other Surgeries: gastric bypass and knee surgery - [facility] Procedures APPLICATION OF SPLINT (12/01/14) CYSTOSCOPY NEC (07/21/13) EXCISION OF STOMACH, ENDO, DIAGN (04/06/16) GROUP PSYCHOTHERAPY (03/26/18) INDIV PSYCHOTHERAPY FOR SUBSTANCE ABUSE TREATMENT, SUPPORT (03/26/18) INDIVID PSYCHOTHERAP NEC (04/03/14) LAPAROSCOP LYSIS-PERITONEAL ADHES (05/11/15) LAPAROSCOPIC CHOLECYSTECTOMY (05/11/15) MEDICATION MANAGEMENT (03/26/18) OTHER GROUP THERAPY (04/03/14) PERCUTANEOUS ABDOMINAL DRAINAGE (05/11/15) REMOV URETERAL DRAIN (07/21/13) URETERAL CATHETERIZATION (07/02/13) Family History: States: Unknown Family Hx - Social History Hx Tobacco Use: No Hx Alcohol Use: No Hx Substance Use: No - Immunization History Hx Tetanus Toxoid Vaccination: No Hx Influenza Vaccination: No Hx Pneumococcal Vaccination: No Review Of Systems Except As Marked, All Systems Reviewed And Found Negative. Constitutional: Negative for: Fever Gastrointestinal: Positive for: Abdominal Pain (RUQ). Negative for: Nausea, Vomiting, Diarrhea Musculoskeletal: Positive for: Back Pain Neurological: Positive for: Dizziness Physical Exam - Physical Exam Appears: Well, Non-toxic, No Acute Distress Skin: Normal Color, Warm, Dry Head: Normacephalic Eye(s): bilateral: Normal Inspection, EOMI Ear(s): Bilateral: Normal Nose: Normal Oral Mucosa: Moist Tongue: Normal Appearing Lips: Normal Appearing Gingiva: Normal Appearing Throat: Normal Neck: Normal ROM Lymphatic: Deferred Chest: Symmetrical, No Deformity Cardiovascular: Rhythm Regular Respiratory: Normal Breath Sounds Gastrointestinal/Abdominal: Bowel Sounds, Soft, Tenderness (+RUQ), No Distention, No Guarding, No Rebound Rectal: Deferred Back: No CVA Tenderness Extremity: Normal ROM (x4) Extremity: Bilateral: Atraumatic Neurological/Psych: Oriented x3, Normal Speech ED Course And Treatment - Laboratory Results Result Diagrams: 07/24/18 11:52 07/24/18 11:52 O2 Sat by Pulse Oximetry: 98 (RA) Pulse Ox Interpretation: Normal - CT Scan/US Abdomen US Other Rad Studies (CT/US): Read By Radiologist, Radiology Report Reviewed CT/US Interpretation: Accession No. : [id number]. Patient Name / ID : SHREYAS OVIEDO / [id number]. Exam Date : 07/24/2018 11:55:51 ( Approved ). Study Comment : Sex / Age : F / [id number]. Creator : Zeb Jenkins MD. Dictator : Zeb Jenkins MD. Teaching Fellow : Drum Stock Clerk : Zeb Jenkins MD. Approver2 : Report Date : 07/24/2018 12:47:04. My Comment : . Date of service: 07/24/2018. HISTORY: Pt c/o RUQ pain. COMPARISON: Comparison made with prior study dated 12/03/2016. TECHNIQUE: Sonographic evaluation of the right upper quadrant of the abdomen. FINDINGS: LIVER: Measures 15.3 cm in length. Smooth contour though echogenic renal parenchyma likely due to fatty infiltration however other infiltrative hepatocellular disease process not excluded. There is also a more discrete area of hypoechoic echotexture right lobe liver that measures 5.5 x 2.9 x 3.8 cm that most likely represents a focal area of fatty sparing as no masses were identified in the liver on prior CT scan abdomen pelvis. Follow-up nonemergent CT scan of the liver could be performed for further evaluation No mass. No gross intrahepatic biliary ductal dilatation. The. GALLBLADDER: Cholecystectomy. COMMON BILE DUCT: .Common bile duct measures approximately 6 mm. No stones. No dilatation. No evidence of sonographic Ojeda sign. PANCREAS: Evaluation of the pancreas is limited due to body habitus and bowel gas. Visualized portions the pancreas are unremarkable however note that. RIGHT KIDNEY: Measures 11.6 x 5.0 x5 0.8 cm in length. Normal echogenicity. No calculus, mass, or hydronephrosis. AORTA: No aneurysmal dilatation so far as can be seen however note that the aorta is incompletely visualized due to body habitus and bowel gas. IVC: Unremarkable. OTHER FINDINGS: None . IMPRESSION: Slightly limited study due to body habitus and bowel gas.. Liver is echogenic likely due to fatty infiltration however other infiltrative hepatocellular disease process not excluded. There is an elliptical shaped area of hypoechoic echotexture right lobe liver that probably represents fatty sparing. No mass was identified in the liver on the prior CT scan 12/03/2016. Follow-up nonemergent CT scan of the liver could be performed for further evaluation. Cholecystectomy. No evidence of choledocholithiasis. No sonographic Ojeda sign. Medical Decision Making Medical Decision Making: Initial impression: undifferentiated abdominal pain Initial plan: -- Chem labs -- blood work -- catapres -- Morphine --omnipaque -- pepcid -- IV fluids -- UA -- RUQ US Progress note 1:49 PM -Pt still with some abd tenderness but much better than earlier. Will get CT 7:00 PM - Pt's pain is much better. CT findings abnormal and surg consult o rdered. General surgery resident Dr. Massey evaluated the pt and discussed with on-call surg attending Dr. Parul Mosquera. Dr. 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 He recommends discussing with a bariatric surgery center for possible transfer. I called bariatric surgery attending Dr. Shalom Casas (cell [phone]) from [facility] (which has a bariatric program) and he states that since patient is currently very comfortable, he recommends admission overnight. If patient remains comfortable, then patient could be discharged and followed up as an outpatient, and recommen ds evaluation by our own surgical attending during this admission. However, if patient's pain returns or symptoms worsen, then the patient could be transferred to his institution for evaluation and possible treatment. I recontacted our surgical attending (Dr. Parul Mosquera) and he agrees with this plan. This plan was also communicated to the admitting hospitalist Dr. Andrez Brown. Disposition - Disposition Disposition: HOSPITALIZED Disposition Time: 17:40 Condition: FAIR - Clinical Impression Clinical Impression: Intussusception, Ventral hernia, Abdominal pain, Hypertension - Scribe Statement The provider has reviewed the documentation as recorded by the Rachana Lebron Do Provider Attestation: All medical record entries made by the Scribe were at my direction and personally dictated by me. I have reviewed the chart and agree that the record accurately reflects my personal performance of the history, physical exam, medical decision making, and the department course for this patient. I have also personally directed, reviewed, and agree with the discharge instructions and disposition. Decision To Admit - Pt Status Changed To: Hospital Disposition Of: Inpatient - Admit Certification Admit to Inpatient:: After my assessment, the patient will require hospitalizati on for at least two midnights. This is because of the severity of symptoms shown, intensity of services needed, and/or the medical risk in this patient being treated as an outpatient. - InPatient: Physician Admission Certification:: Patient will need workup by surgery and possibly GI - . Bed Request Type: Regular Admitting Physician: Andrez Brown Patient Diagnosis: Intussusception, Ventral hernia, Abdominal pain, Hypertension
[2018-07-24] MEDS ORDERED: Iohexol 240 (50 ml) ONE (11:58)
[2018-07-24] MEDS ORDERED: Sodium Chloride 0.9% 1,000 ML ONE (11:59)
[2018-07-24] MEDS ORDERED: Morphine 4 MG/ML VIAL ONE (11:59)
[2018-07-24 12:09] LABS: BASO # 0.1 K/uL (0.0-0.2); BASO % 1.1 % (0.0-2.0); EOS # 0.2 K/uL (0.0-0.7); EOS % 2.9 % (0.0-4.0); HEMOGLOBIN 13.9 g/dL (11.0-16.0); LYMPH # 1.9 K/uL (1.0-4.3); LYMPH % 29.3 % (20.0-40.0); MEAN CELL VOLUME 79.2 fL (81.0-99.0); MEAN CORPUSCULAR HEMOGLOBIN 26.3 pg (27.0-31.0); MEAN CORPUSCULAR HGB CONC 33.2 g/dL (33.0-37.0); MEAN PLATELET VOLUME 8.6 fL (7.2-11.7); MONO # 0.5 K/uL (0.0-0.8); MONO % 8.5 % (0.0-10.0); NEUT # 3.7 K/uL (1.8-7.0); NEUT % 58.2 % (50.0-75.0); NRBC % 0.1 % (0.0-2.0); RBC 5.28 Mil/uL (3.80-5.20); RED CELL DISTRIBUTION WIDTH 15.4 % (11.5-14.5); WHITE BLOOD COUNT 6.4 K/uL (4.8-10.8)
[2018-07-24 12:11] LABS: SQUAMOUS EPITHIAL < 1 /hpf (0-5); URINE BACTERIA RARE (<OCC); URINE BILIRUBIN NEGATIVE (NEGATIVE); URINE BLOOD NEGATIVE (NEGATIVE); URINE CLARITY Clear (Clear); URINE COLOR Straw (YELLOW); URINE GLUCOSE (UA) NORMAL (Normal); URINE LEUKOCYTE ESTERASE NEG Leu/uL (Negative); URINE PROTEIN 1+ mg/dL (NEGATIVE); URINE UROBILINOGEN NORMAL mg/dL (0.2-1.0)
[2018-07-24 12:21] LABS: ALB/GLOB RATIO 1.4 (1.0-2.1); ALBUMIN 4.6 g/dL (3.5-5.0); ALT/SGPT 19 U/L (9-52); AST/SGOT 25 U/L (14-36); BLOOD UREA NITROGEN 16 mg/dL (7-17); CALCIUM 9.7 mg/dl (8.6-10.4); GFR NON-AFRICAN AMERICAN > 60
[2018-07-24 12:22] LABS: LIPASE 69 U/L (23-300)
[2018-07-24] MEDS: Iohexol 240 (50 ml) PO ONE ×2 (12:38→13:37)
--- NOTE | 2018-07-24 12:48 | US ---
Date of service: 07/24/2018 HISTORY: Pt c/o RUQ pain COMPARISON: Comparison made with prior study dated 12/03/2016. TECHNIQUE: Sonographic evaluation of the right upper quadrant of the abdomen. FINDINGS: LIVER: Measures 15.3 cm in length. Smooth contour though echogenic renal parenchyma likely due to fatty infiltration however other infiltrative hepatocellular disease process not excluded. There is also a more discrete area of hypoechoic echotexture right lobe liver that measures 5.5 x 2.9 x 3.8 cm that most likely represents a focal area of fatty sparing as no masses were identified in the liver on prior CT scan abdomen pelvis. Follow-up nonemergent CT scan of the liver could be performed for further evaluation No mass. No gross intrahepatic biliary ductal dilatation. The GALLBLADDER: Cholecystectomy COMMON BILE DUCT: .Common bile duct measures approximately 6 mm. No stones. No dilatation. No evidence of sonographic Ojeda sign PANCREAS: Evaluation of the pancreas is limited due to body habitus and bowel gas. Visualized portions the pancreas are unremarkable however note that RIGHT KIDNEY: Measures 11.6 x 5.0 x5 0.8 cm in length. Normal echogenicity. No calculus, mass, or hydronephrosis. AORTA: No aneurysmal dilatation so far as can be seen however note that the aorta is incompletely visualized due to body habitus and bowel gas. IVC: Unremarkable. OTHER FINDINGS: None . IMPRESSION: Slightly limited study due to body habitus and bowel gas.. Liver is echogenic likely due to fatty infiltration however other infiltrative hepatocellular disease process not excluded. There is an elliptical shaped area of hypoechoic echotexture right lobe liver that probably represents fatty sparing. No mass was identified in the liver on the prior CT scan 12/03/2016. Follow-up nonemergent CT scan of the liver could be performed for further evaluation. Cholecystectomy. No evidence of choledocholithiasis. No sonographic Ojeda sign.
[2018-07-24] MEDS ORDERED: Iodixanol 320 MG/ML 100 ML BOTTLE IV ONE (14:54)
--- NOTE | 2018-07-24 16:44 | CT ---
Date of service: 07/24/2018 PROCEDURE: CT Abdomen and Pelvis with Oral contrast. HISTORY: Patient c/o right upper quadrant pain COMPARISON: Comparison made with CT scan of the abdomen and pelvis dated the 12/03/2016. TECHNIQUE: Contiguous axial images of the abdomen and pelvis following oral and intravenous injection of approximately 100 cc Visipaque 320 contrast material.. Coronal and Sagittal reformats generated. Radiation dose: Total exam DLP = 1017.99 mGy-cm. This CT exam was performed using one or more of the following dose reduction techniques: Automated exposure control, adjustment of the mA and/or kV according to patient size, and/or use of iterative reconstruction technique. FINDINGS: LOWER THORAX: Minimal passive/dependent type atelectasis both posterior lower lung zones. Tiny pneumatocele left lung base. Minor scarring seen in the right middle lobe region. LIVER: Liver exhibits normal size. Mild diffuse fatty hepatic infiltration. No obvious hepatic mass collection or calcification. GALLBLADDER AND BILE DUCTS: Cholecystectomy. Minor dilatation of the common bile duct and central intrahepatic biliary ductal dilatation PANCREAS: Pancreas appears atrophic and fatty replaced. No evidence of pancreatic masses or collections. No significant pancreatic ductal dilatation. SPLEEN: Spleen exhibits normal size and attenuation pattern without mass collection or calcification. ADRENALS: No adrenal lesions.. KIDNEYS AND URETERS: The kidneys demonstrate relatively symmetric nephrograms. No evidence of nephrolithiasis or hydronephrosis.. There appear to be a few small cystic foci left kidney BLADDER: Urinary bladder is incompletely distended which in part accounts for thick-walled appearance. Correlation with urinalysis to exclude cystitis.. REPRODUCTIVE: Small left ovarian cyst measuring 3.2 x 2.3 cm. APPENDIX: No evidence of acute appendicitis. BOWEL: Evaluation of the bowel slightly limited due to incomplete opacification.. Postoperative changes of gastric bypass surgery.. Wall thickening of the excluded portion of the stomach.. Clinical correlation recommended to exclude gastritis. There is also a short segment intussusception of the proximal small bowel left mid abdomen with mild localized on the distention of a short segment of the proximal small bowel leading into the intussusception. These findings are best appreciated on coronal sequence image number 47 through 54.. No evidence of acute mechanical bowel obstruction with oral contrast material seen distally the in the distal small bowel. GI consultation recommended for further evaluation to assess on the stomach and small bowel as detailed above. Within the right and transverse colon. The left colon is predominately collapsed.. PERITONEUM: Unremarkable. No fluid collection. No free air. There is a small to medium-sized upper mid abdominal hernia which contains mesentery and a knuckle of unobstructed large bowel. LYMPH NODES: Unremarkable. No enlarged lymph nodes. VASCULATURE: Unremarkable. No aortic aneurysm. BONES: No fracture or destructive lesion. OTHER FINDINGS: Mild degenerative spondylosis of the lower thoracic and lumbar spine. IMPRESSION: Postoperative changes of gastric bypass surgery.. Wall thickening of the is excluded portion of the stomach.. Clinical correlation recommended to exclude gastritis. There is also a short segment intussusception of the proximal small bowel left mid abdomen with mild localized on the distention of a short segment of the proximal small bowel leading into the intussusception. Findings are best appreciated on coronal sequence image number 47 through 54. No evidence of acute mechanical bowel obstruction with oral contrast material seen distally the in the distal small bowel. Note also made of a small mid upper abdominal ventral wall hernia which contains mesentery and a short segment/knuckle of transverse colon however no evidence of obstruction. There is a short segment intussusception left mid small bowel left upper quadrant of the abdomen. Consider GI consultation to exclude the possibility of a abnormal lead point. Cholecystectomy with mild extrahepatic and central intrahepatic biliary ductal dilatation. Mild fatty hepatic infiltration. Small left ovarian cyst. See above discussion for additional details and findings
[2018-07-24 18:01] LABS: VENOUS BLOOD GAS BASE EXCESS 4.2 mmol/L (0.0-2.0); VENOUS BLOOD GAS PCO2 55 mmHg (40-60); VENOUS BLOOD GAS PO2 18 mm/Hg (30-55); VENOUS BLOOD PH 7.36 (7.32-7.43)
--- NOTE | 2018-07-24 20:38 | CP.PCM.CON ---
<Hetal Massey - Last Filed: 07/25/18 08:18> History of Present Illness - History of Present Illness History of Present Illness: General Surgery progress note for Dr. Parul Mosquera Consulted for: small bowel intussusception Pt is a 63F with PMH including DM, kidney stones and gastric ulcers PSH of laparoscopic converted to open micheal en y gastric bypass performed 15 years ago by a non-[facility]point physician who presents to the ER today for 1 week of R back pain radiating anteriorly and across her upper abdomen. Patient states that pain last for an hour, then subsides, it is sharp in nature becomes dull. Patient says it is not related to food consumption, and nothing alleviates it. Patient states that she has been unable to sleep because she cannot find a comfortable position and it was getting worse over past 24-48 hours, so she came to the ER. Pt states pain is improved but not resolved with pain medicine given in ER. Patient states she has occasional nausea, but no vomiting. She has constipation, but last BM was 3x this AM with hard, normal color stools, no blood. Patient denies dysuria, hematuria, fevers, chills, SOB, chest pain. patient states that her back pain is similar to a prior kidney stone and that abdominal pain is different from prior ulcer near her gastric anastamosis. PMH: DM, hypothyroidism, nephrolithiasis, asthma, thyroid cancer, htn, gallstone pancreatitis, anxiety, bipolar disorder, marginal ulcer, GERD, leg fracture PSH: left leg surgery, micheal en y laparoscopic converted to open gastric bypass, laparoscopic cholecystectomy, thyroidectomy ALL: methylprednisolone Social: denies smoking history, occasional ETOH, former cocaine use quite 5 years ago Review of Systems - Review of Systems All systems: reviewed and no additional remarkable complaints except (as per HPI) Past Patient History - Infectious Disease Hx of Infectious Diseases: None - Past Medical History & Family History Past Medical History?: Yes Past Family History: Reviewed and not pertinent - Past Social History Smoking Status: Never Smoked Alcohol: Occasional Drugs: Cocaine - CARDIAC Hx Hypertension: Yes - PULMONARY Hx Asthma: Yes - NEUROLOGICAL Hx Seizures: No - HEENT Hx HEENT Problems: Yes Other/Comment: LEFT EAR TUMOR REMOVED - RENAL Hx Chronic Kidney Disease: Yes Hx Kidney Stones: Yes - ENDOCRINE/METABOLIC Hx Hypothyroidism: Yes (S\P THYROIDECTOMY FOR CANCER) - HEMATOLOGICAL/ONCOLOGICAL Hx Anemia: Yes - INTEGUMENTARY Hx Dermatological Problems: No - MUSCULOSKELETAL/RHEUMATOLOGICAL Hx Arthritis: Yes Hx Fractures: Yes (LEFT LEG) - GASTROINTESTINAL Hx Gall Bladder Disease: Yes Hx Gastritis: Yes Hx Pancreatitis: Yes Other/Comment: marginal ulcer at micheal-en-y jejunogastric anastamosis - GENITOURINARY/GYNECOLOGICAL Hx Sexually Transmitted Disorders: No - PSYCHIATRIC Hx Anxiety: Yes Hx Depression: Yes Hx Substance Use: No - SURGICAL HISTORY Hx Cholecystectomy: Yes Hx Gastric Bypass Surgery: Yes (laparoscopic converted to open micheal-en-y gastrectomy 2002) Hx Thyroidectomy: Yes - ANESTHESIA Hx Anesthesia: Yes Hx Anesthesia Reactions: No Hx Malignant Hyperthermia: No Meds Allergies/Adverse Reactions: Allergies Allergy/AdvReac Type Severity Reaction Status Date / Time methylprednisolone AdvReac NAUSEA Verified 07/24/18 13:46 [From Solu-Medrol] - Medications Medications: Current Medications Sodium Chloride (Sodium Chloride 0.9%) 1,000 mls @ 100 mls/hr IV .Q10H ONE Stop: 07/24/18 21:28 Last Admin: 07/24/18 12:37 Dose: 100 mls/hr Physical Exam - Constitutional Appears: Well, Non-toxic, No Acute Distress - Head Exam Head Exam: ATRAUMATIC, NORMOCEPHALIC - Eye Exam Eye Exam: Normal appearance. absent: Conjunctival injection, Scleral icterus - ENT Exam ENT Exam: Mucous Membranes Moist, Normal Oropharynx - Respiratory Exam Respiratory Exam: NORMAL BREATHING PATTERN. absent: Accessory Muscle Use, Respiratory Distress - GI/Abdominal Exam GI & Abdominal Exam: Hernia (no palpable hernia/hernia contents), Soft, Tenderness (LUQ moderate tenderness to palpation, mild tenderness to palpation of the epigastrium and RUQ). absent: Distended - Extremities Exam Extremities exam: Positive for: pedal pulses present. Negative for: calf tenderness, pedal edema - Back Exam Back exam: tenderness (tenderness to palpation of the right lower lateral back, no gross deformities or ecchymosis). absent: CVA tenderness (L), CVA tenderness (R) - Neurological Exam Neurological exam: Alert, Oriented x3 - Psychiatric Exam Psychiatric exam: Normal Affect, Normal Mood - Skin Skin Exam: Dry, Normal Color, Warm Results - Vital Signs Recent Vital Signs: Last Vital Signs Temp 98.1 F 07/24/18 18:19 Pulse 55 L 07/24/18 18:19 Resp 18 07/24/18 18:19 BP 142/88 07/24/18 18:19 Pulse Ox 98 07/24/18 19:20 - Labs Result Diagrams: 07/25/18 07:24 07/24/18 11:52 Labs: Laboratory Results - last 24 hr 07/24/18 07/24/18 07/24/18 11:52 11:52 12:03 WBC 6.4 RBC 5.28 H Hgb 13.9 Hct 41.8 MCV 79.2 L MCH 26.3 L MCHC 33.2 RDW 15.4 H Plt Count 248 MPV 8.6 Neut % (Auto) 58.2 Lymph % (Auto) 29.3 [place] % (Auto) 8.5 Eos % (Auto) 2.9 Baso % (Auto) 1.1 Neut # (Auto) 3.7 Lymph # (Auto) 1.9 [place] # (Auto) 0.5 Eos # (Auto) 0.2 Baso # (Auto) 0.1 pO2 VBG pH VBG pCO2 VBG HCO3 VBG Total CO2 VBG O2 Sat (Calc) VBG Base Excess VBG Potassium Glucose Lactate Sodium 141 Potassium 4.1 Chloride 98 Carbon Dioxide 31 H Anion Gap 16 BUN 16 Creatinine 0.7 Est GFR ( Amer) > 60 Est GFR (Non-Af Amer) > 60 Random Glucose 169 H Calcium 9.7 Total Bilirubin 0.9 AST 25 ALT 19 Alkaline Phosphatase 127 H Total Protein 7.9 Albumin 4.6 Globulin 3.3 Albumin/Globulin Ratio 1.4 Lipase 69 Venous Blood Potassium Urine Color Straw Urine Clarity Clear Urine pH 7.0 Ur Specific [place] 1.008 Urine Protein 1+ H Urine Glucose (UA) Normal Urine Ketones Negative Urine Blood Negative Urine Nitrate Negative Urine Bilirubin Negative Urine Urobilinogen Normal Ur Leukocyte Esterase Neg Urine WBC (Auto) < 1 Urine RBC (Auto) 1 Ur Squamous Epith Cells < 1 Urine Bacteria Rare 07/24/18 17:57 WBC RBC Hgb Hct MCV MCH MCHC RDW Plt Count MPV Neut % (Auto) Lymph % (Auto) [place] % (Auto) Eos % (Auto) Baso % (Auto) Neut # (Auto) Lymph # (Auto) [place] # (Auto) Eos # (Auto) Baso # (Auto) pO2 18 L VBG pH 7.36 VBG pCO2 55 VBG HCO3 26.2 VBG Total CO2 32.8 H VBG O2 Sat (Calc) 25.9 L VBG Base Excess 4.2 H VBG Potassium 3.2 L Glucose 137 H Lactate 1.0 Sodium 137.0 Potassium Chloride 100.0 Carbon Dioxide Anion Gap BUN Creatinine Est GFR ( Amer) Est GFR (Non-Af Amer) Random Glucose Calcium Total Bilirubin AST ALT Alkaline Phosphatase Total Protein Albumin Globulin Albumin/Globulin Ratio Lipase Venous Blood Potassium 3.2 L Urine Color Urine Clarity Urine pH Ur Specific [place] Urine Protein Urine Glucose (UA) Urine Ketones Urine Blood Urine Nitrate Urine Bilirubin Urine Urobilinogen Ur Leukocyte Esterase Urine WBC (Auto) Urine RBC (Auto) Ur Squamous Epith Cells Urine Bacteria - Imaging and Cardiology CT scan - abdomen Status: Image reviewed by me, Report reviewed by me Additional comment: intussusception of the jejuno-jejunal anastamosis. Multiple non-obstructing hernias of the ventral abdomen with no sign of inflammation CT scan - pelvis Status: Image reviewed by me, Report reviewed by me Assessment & Plan - Assessment and Plan (Free Text) Assessment: 63F with PMH of gastric micheal-en-y bypass 15 years ago with intussusception of the jejuno-jejunal anastamosis and multiple non-incarcerated, non obstructed midline ventral hernias Plan: Recommend bariatric surgery consult or transfer to a bariatric surgery center as this is a complication of her bariatric surgery--management can be highly comple x and would benefit from specialized care--if patient worsens, patient should be immediately transferred Will continue to monitor closely while inhouse NPO IVF PRN pain and nausea medications Discussed with Dr. Mosquera, who agrees with above Hetal Massey PGY2 <Parul Mosquera - Last Filed: 07/25/18 18:35> Results - Vital Signs Recent Vital Signs: Last Vital Signs Temp 98.0 F 07/25/18 15:00 Pulse 59 L 07/25/18 15:00 Resp 20 07/25/18 15:00 BP 129/85 07/25/18 15:00 Pulse Ox 95 07/25/18 15:00 - Labs Result Diagrams: 07/25/18 07:24 07/25/18 07:24 Labs: Laboratory Results - last 24 hr 07/24/18 07/25/18 07/25/18 23:38 00:08 06:09 WBC RBC Hgb Hct MCV MCH MCHC RDW Plt Count MPV Neut % (Auto) Lymph % (Auto) [place] % (Auto) Eos % (Auto) Baso % (Auto) Neut # (Auto) Lymph # (Auto) [place] # (Auto) Eos # (Auto) Baso # (Auto) Sodium Potassium Chloride Carbon Dioxide Anion Gap BUN Creatinine Est GFR ( Amer) Est GFR (Non-Af Amer) POC Glucose (mg/dL) 172 H 161 H 168 H Random Glucose Lactic Acid Calcium Total Bilirubin AST ALT Alkaline Phosphatase Total Protein Albumin Globulin Albumin/Globulin Ratio 07/25/18 07/25/18 07/25/18 07:24 07:24 07:24 WBC 4.5 L RBC 4.60 Hgb 12.1 Hct 36.2 MCV 78.7 L MCH 26.3 L MCHC 33.5 RDW 14.8 H Plt Count 219 MPV 8.6 Neut % (Auto) 49.9 L Lymph % (Auto) 36.3 [place] % (Auto) 9.5 Eos % (Auto) 3.2 Baso % (Auto) 1.1 Neut # (Auto) 2.3 Lymph # (Auto) 1.6 [place] # (Auto) 0.4 Eos # (Auto) 0.1 Baso # (Auto) 0.0 Sodium 137 Potassium 3.5 L Chloride 102 Carbon Dioxide 26 Anion Gap 13 BUN 15 Creatinine 0.6 L Est GFR ( Amer) > 60 Est GFR (Non-Af Amer) > 60 POC Glucose (mg/dL) Random Glucose 156 H Lactic Acid 0.9 Calcium 8.4 L Total Bilirubin 1.0 AST 23 ALT 23 Alkaline Phosphatase 97 Total Protein 6.1 L Albumin 3.4 L D Globulin 2.7 Albumin/Globulin Ratio 1.3 07/25/18 07/25/18 12:49 16:08 WBC RBC Hgb Hct MCV MCH MCHC RDW Plt Count MPV Neut % (Auto) Lymph % (Auto) [place] % (Auto) Eos % (Auto) Baso % (Auto) Neut # (Auto) Lymph # (Auto) [place] # (Auto) Eos # (Auto) Baso # (Auto) Sodium Potassium Chloride Carbon Dioxide Anion Gap BUN Creatinine Est GFR ( Amer) Est GFR (Non-Af Amer) POC Glucose (mg/dL) 153 H 136 H Random Glucose Lactic Acid Calcium Total Bilirubin AST ALT Alkaline Phosphatase Total Protein Albumin Globulin Albumin/Globulin Ratio Assessment & Plan - Assessment and Plan (Free Text) Plan: I personally saw and examined the patient with the resident staff and agree with the above assessment and plan. I personally reviewed the available diagnostic images and imaging reports. 63 Female hx of RY gastric bypass 10 yeas ago, with 1 week progressively worsening , intermittent abdominal pain, CT evidence of intussception at JJ anastomosis. She does also have multiple midline fascia defects with fat and transverse colon but not obstructing. Discussed with Dr. Hein in ED. Rec transfer to bariatric center for possible complex revisional surgery of her jejunojejunostomy. Bariatric surgeon contacted at [facility] and will accept transfer tomorrow if patient does not clinically improve. If she does, she can be discharged and follow up with him as outpatient.
[2018-07-24] MEDS ORDERED: Dextrose 50% SYRINGE Inj (50 ml) IV PRN (22:54)
[2018-07-24] MEDS ORDERED: Glucagon Recombinant 1 mg Inj IM PRN (22:54)
[2018-07-24] MEDS ORDERED: (Novolin R) Insulin Human Regular 100 units/ml vial SC SCH (23:00)
[2018-07-25 00:37] VITALS: RESP 20
--- NOTE | 2018-07-25 02:50 | CP.PCM.HP ---
<Donald Harrison P - Last Filed: 07/25/18 06:57> Meds Allergies/Adverse Reactions: Allergies Allergy/AdvReac Type Severity Reaction Status Date / Time methylprednisolone AdvReac NAUSEA Verified 07/24/18 13:46 [From Solu-Medrol] Results - Vital Signs Recent Vital Signs: Last Vital Signs Temp 97.8 F 07/25/18 00:35 Pulse 61 07/25/18 00:35 Resp 20 07/25/18 00:35 BP 157/95 H 07/25/18 00:35 Pulse Ox 96 07/25/18 00:35 - Labs Result Diagrams: 07/24/18 11:52 07/24/18 11:52 Labs: Laboratory Results - last 24 hr 07/24/18 07/24/18 07/24/18 11:52 11:52 12:03 WBC 6.4 RBC 5.28 H Hgb 13.9 Hct 41.8 MCV 79.2 L MCH 26.3 L MCHC 33.2 RDW 15.4 H Plt Count 248 MPV 8.6 Neut % (Auto) 58.2 Lymph % (Auto) 29.3 [place] % (Auto) 8.5 Eos % (Auto) 2.9 Baso % (Auto) 1.1 Neut # (Auto) 3.7 Lymph # (Auto) 1.9 [place] # (Auto) 0.5 Eos # (Auto) 0.2 Baso # (Auto) 0.1 pO2 VBG pH VBG pCO2 VBG HCO3 VBG Total CO2 VBG O2 Sat (Calc) VBG Base Excess VBG Potassium Glucose Lactate Sodium 141 Potassium 4.1 Chloride 98 Carbon Dioxide 31 H Anion Gap 16 BUN 16 Creatinine 0.7 Est GFR ( Amer) > 60 Est GFR (Non-Af Amer) > 60 POC Glucose (mg/dL) Random Glucose 169 H Calcium 9.7 Total Bilirubin 0.9 AST 25 ALT 19 Alkaline Phosphatase 127 H Total Protein 7.9 Albumin 4.6 Globulin 3.3 Albumin/Globulin Ratio 1.4 Lipase 69 Venous Blood Potassium Urine Color Straw Urine Clarity Clear Urine pH 7.0 Ur Specific [place] 1.008 Urine Protein 1+ H Urine Glucose (UA) Normal Urine Ketones Negative Urine Blood Negative Urine Nitrate Negative Urine Bilirubin Negative Urine Urobilinogen Normal Ur Leukocyte Esterase Neg Urine WBC (Auto) < 1 Urine RBC (Auto) 1 Ur Squamous Epith Cells < 1 Urine Bacteria Rare 07/24/18 07/24/18 07/25/18 17:57 23:38 00:08 WBC RBC Hgb Hct MCV MCH MCHC RDW Plt Count MPV Neut % (Auto) Lymph % (Auto) [place] % (Auto) Eos % (Auto) Baso % (Auto) Neut # (Auto) Lymph # (Auto) [place] # (Auto) Eos # (Auto) Baso # (Auto) pO2 18 L VBG pH 7.36 VBG pCO2 55 VBG HCO3 26.2 VBG Total CO2 32.8 H VBG O2 Sat (Calc) 25.9 L VBG Base Excess 4.2 H VBG Potassium 3.2 L Glucose 137 H Lactate 1.0 Sodium 137.0 Potassium Chloride 100.0 Carbon Dioxide Anion Gap BUN Creatinine Est GFR ( Amer) Est GFR (Non-Af Amer) POC Glucose (mg/dL) 172 H 161 H Random Glucose Calcium Total Bilirubin AST ALT Alkaline Phosphatase Total Protein Albumin Globulin Albumin/Globulin Ratio Lipase Venous Blood Potassium 3.2 L Urine Color Urine Clarity Urine pH Ur Specific [place] Urine Protein Urine Glucose (UA) Urine Ketones Urine Blood Urine Nitrate Urine Bilirubin Urine Urobilinogen Ur Leukocyte Esterase Urine WBC (Auto) Urine RBC (Auto) Ur Squamous Epith Cells Urine Bacteria 07/25/18 06:09 WBC RBC Hgb Hct MCV MCH MCHC RDW Plt Count MPV Neut % (Auto) Lymph % (Auto) [place] % (Auto) Eos % (Auto) Baso % (Auto) Neut # (Auto) Lymph # (Auto) [place] # (Auto) Eos # (Auto) Baso # (Auto) pO2 VBG pH VBG pCO2 VBG HCO3 VBG Total CO2 VBG O2 Sat (Calc) VBG Base Excess VBG Potassium Glucose Lactate Sodium Potassium Chloride Carbon Dioxide Anion Gap BUN Creatinine Est GFR ( Amer) Est GFR (Non-Af Amer) POC Glucose (mg/dL) 168 H Random Glucose Calcium Total Bilirubin AST ALT Alkaline Phosphatase Total Protein Albumin Globulin Albumin/Globulin Ratio Lipase Venous Blood Potassium Urine Color Urine Clarity Urine pH Ur Specific [place] Urine Protein Urine Glucose (UA) Urine Ketones Urine Blood Urine Nitrate Urine Bilirubin Urine Urobilinogen Ur Leukocyte Esterase Urine WBC (Auto) Urine RBC (Auto) Ur Squamous Epith Cells Urine Bacteria Attending/Attestation - Attestation I have personally seen and examined this patient.: Yes I have fully participated in the care of the patient.: Yes I have reviewed all pertinent clinical information: Yes Notes (Text): 07/25/18 06:58 Abdominal pain suspected in relation to jejuno-jejunal intussusception, with waxing and waning episodes, surgery team here suggest will eventually need bariatric speciality, patient had surg 15 yrs back, with post op complication of infection and reopening, suspect adhesions as well, clinically not in signs of bowel ischemia. H/o asthma H/o depression, psychosis H/o NIDDM Plan NPO except meds IVF follow along with surg team here if need urgent transfer to bariatric center or elective procedure Accuchecks Gi/DVT prophylaxis See orders for detail. <Chelsea Escobar P - Last Filed: 07/25/18 07:45> History of Present Illness - History of Present Illness History of Present Illness: PGY-1 H&P note for hospitalist service. 63 year old female with PMHx of HTN, DM, Asthma, thyroid cancer (in remission), gastric ulcer presents to ED complaining of intermittent abdominal pain that began one week ago and has been progressively worsening. Pain is located in the RUQ and radiates to the back. Treatment with Aleve and Tylenol provided no improvement in symptoms. Pain not associated with eating. Admits to nausea, dizziness and headache. Denies fever, chills, diarrhea, hematochezia, melena, dysuria, recent illness, and sick contacts. PMHx: HTN, DM, Asthma, thyroid cancer (in remission), hypothyroid, gastric ulcer, bipolar disorder PSHx: cholecystectomy 4 years ago, gastric bypass 10 years ago, knee surgery 5 years ago, ear surgery. Meds: Metformin 500 BID, amlodipine 5mg PO daily, quetiapine 50mg HS, [place] [address] 10mg HS, Levothyroxine 175mcg Allergies: methylprednisolone Social Hx: denies tobaco and alcohol; quit cocaine 5 years ago Family Hx: Mother of stomach cancer at 45 PMD: [place] Present on Admission - Present on Admission Any Indicators Present on Admission: No Review of Systems - Constitutional Constitutional: Headache. absent: Chills, Fever, Lethargy, Night Sweats - Cardiovascular Cardiovascular: absent: Chest Pain, Diaphoresis, Edema, Leg Edema, Orthopnea, Palpitations - Gastrointestinal Gastrointestinal: Abdominal Pain, Nausea. absent: Coffee Ground Emesis, Diarrhea, Hematochezia, Melena, Temesmus, Vomiting, Other - Musculoskeletal Musculoskeletal: absent: Muscle Weakness, Neck Pain, Numbness, Stiffness, Tingling - Integumentary Integumentary: absent: Furuncle, Hirsutism, Pruritus, Rash, Skin Pain, Sores - Neurological Neurological: absent: Abnormal Hearing, Abnormal Speech, Burning Sensations, Numbness, Focal Weakness, Frequent Falls, Sensory Deficit - Endocrine Endocrine: absent: Change in Body Appearance, Excessive Sweating, Heat Intolorance Past Patient History - Infectious Disease Hx of Infectious Diseases: None - Past Medical History & Family History Past Medical History?: Yes - Past Social History Smoking Status: Never Smoked - CARDIAC Hx Cardiac Disorders: Yes Hx Hypertension: Yes - PULMONARY Hx Respiratory Disorders: Yes Hx Asthma: Yes - NEUROLOGICAL Hx Neurological Disorder: No Hx Seizures: No - HEENT Hx HEENT Problems: Yes Other/Comment: LEFT EAR TUMOR REMOVED - RENAL Hx Chronic Kidney Disease: Yes Hx Kidney Stones: Yes - ENDOCRINE/METABOLIC Hx Endocrine Disorders: Yes Hx Hypothyroidism: Yes (S\P THYROIDECTOMY FOR CANCER) - HEMATOLOGICAL/ONCOLOGICAL Hx Blood Disorders: Yes Hx Anemia: Yes Hx Blood Transfusions: Yes - INTEGUMENTARY Hx Dermatological Problems: No - MUSCULOSKELETAL/RHEUMATOLOGICAL Hx Musculoskeletal Disorders: Yes Hx Arthritis: Yes Hx Falls: No Hx Fractures: Yes (LEFT LEG) - GASTROINTESTINAL Hx Gastrointestinal Disorders: Yes Hx Gall Bladder Disease: Yes Hx Gastritis: Yes Hx Pancreatitis: Yes Other/Comment: marginal ulcer at micheal-en-y jejunogastric anastamosis - GENITOURINARY/GYNECOLOGICAL Hx Genitourinary Disorders: No Hx Sexually Transmitted Disorders: No - PSYCHIATRIC Hx Psychophysiologic Disorder: Yes Hx Anxiety: Yes Hx Depression: Yes Hx Substance Use: Yes (cocaine) - SURGICAL HISTORY Hx Surgeries: Yes Hx Cholecystectomy: Yes Hx Gastric Bypass Surgery: Yes (laparoscopic converted to open micheal-en-y gastrectomy 2002) Hx Thyroidectomy: Yes - ANESTHESIA Hx Anesthesia: Yes Hx Anesthesia Reactions: No Hx Malignant Hyperthermia: No Physical Exam - Constitutional Appears: Non-toxic, No Acute Distress - Head Exam Head Exam: ATRAUMATIC, NORMOCEPHALIC - Eye Exam Eye Exam: EOMI, PERRL - ENT Exam ENT Exam: Mucous Membranes Moist - Neck Exam Neck exam: Positive for: Full Rom. Negative for: Tenderness - Respiratory Exam Respiratory Exam: Clear to Auscultation Bilateral. absent: Rales, Rhonchi, Wheezes - Cardiovascular Exam Cardiovascular Exam: REGULAR RHYTHM, +S1, +S2 - GI/Abdominal Exam GI & Abdominal Exam: Normal Bowel Sounds, Tenderness (RUQ). absent: Distended, Guarding, Rebound - Back Exam Back exam: absent: CVA tenderness (L), CVA tenderness (R) - Neurological Exam Neurological exam: Abnormal Gait, Alert, CN II-XII Intact, Oriented x3 - Psychiatric Exam Psychiatric exam: Normal Mood - Skin Skin Exam: Dry, Normal Color, Warm Results - Vital Signs Recent Vital Signs: Last Vital Signs Temp 97.8 F 07/25/18 00:35 Pulse 61 07/25/18 00:35 Resp 20 07/25/18 00:35 BP 157/95 H 07/25/18 00:35 Pulse Ox 96 07/25/18 00:35 - Labs Result Diagrams: 07/24/18 11:52 07/24/18 11:52 Labs: Laboratory Results - last 24 hr 07/24/18 07/24/18 07/24/18 11:52 11:52 12:03 WBC 6.4 RBC 5.28 H Hgb 13.9 Hct 41.8 MCV 79.2 L MCH 26.3 L MCHC 33.2 RDW 15.4 H Plt Count 248 MPV 8.6 Neut % (Auto) 58.2 Lymph % (Auto) 29.3 [place] % (Auto) 8.5 Eos % (Auto) 2.9 Baso % (Auto) 1.1 Neut # (Auto) 3.7 Lymph # (Auto) 1.9 [place] # (Auto) 0.5 Eos # (Auto) 0.2 Baso # (Auto) 0.1 pO2 VBG pH VBG pCO2 VBG HCO3 VBG Total CO2 VBG O2 Sat (Calc) VBG Base Excess VBG Potassium Glucose Lactate Sodium 141 Potassium 4.1 Chloride 98 Carbon Dioxide 31 H Anion Gap 16 BUN 16 Creatinine 0.7 Est GFR ( Amer) > 60 Est GFR (Non-Af Amer) > 60 POC Glucose (mg/dL) Random Glucose 169 H Calcium 9.7 Total Bilirubin 0.9 AST 25 ALT 19 Alkaline Phosphatase 127 H Total Protein 7.9 Albumin 4.6 Globulin 3.3 Albumin/Globulin Ratio 1.4 Lipase 69 Venous Blood Potassium Urine Color Straw Urine Clarity Clear Urine pH 7.0 Ur Specific [place] 1.008 Urine Protein 1+ H Urine Glucose (UA) Normal Urine Ketones Negative Urine Blood Negative Urine Nitrate Negative Urine Bilirubin Negative Urine Urobilinogen Normal Ur Leukocyte Esterase Neg Urine WBC (Auto) < 1 Urine RBC (Auto) 1 Ur Squamous Epith Cells < 1 Urine Bacteria Rare 07/24/18 07/24/18 07/25/18 17:57 23:38 00:08 WBC RBC Hgb Hct MCV MCH MCHC RDW Plt Count MPV Neut % (Auto) Lymph % (Auto) [place] % (Auto) Eos % (Auto) Baso % (Auto) Neut # (Auto) Lymph # (Auto) [place] # (Auto) Eos # (Auto) Baso # (Auto) pO2 18 L VBG pH 7.36 VBG pCO2 55 VBG HCO3 26.2 VBG Total CO2 32.8 H VBG O2 Sat (Calc) 25.9 L VBG Base Excess 4.2 H VBG Potassium 3.2 L Glucose 137 H Lactate 1.0 Sodium 137.0 Potassium Chloride 100.0 Carbon Dioxide Anion Gap BUN Creatinine Est GFR ( Amer) Est GFR (Non-Af Amer) POC Glucose (mg/dL) 172 H 161 H Random Glucose Calcium Total Bilirubin AST ALT Alkaline Phosphatase Total Protein Albumin Globulin Albumin/Globulin Ratio Lipase Venous Blood Potassium 3.2 L Urine Color Urine Clarity Urine pH Ur Specific [place] Urine Protein Urine Glucose (UA) Urine Ketones Urine Blood Urine Nitrate Urine Bilirubin Urine Urobilinogen Ur Leukocyte Esterase Urine WBC (Auto) Urine RBC (Auto) Ur Squamous Epith Cells Urine Bacteria Assessment & Plan - Assessment and Plan (Free Text) Plan: 63 year old female with PMHx of HTN, DM, Asthma, thyroid cancer (in remission), gastric ulcer presents complaining of abdominal pain and admitted for intussusseption. Intussusseption CT abd:Postoperative changes of gastric bypass surgery.. Wall thickening of the is excluded portion of the stomach.. Clinical correlation recommended to exclude gastritis. There is also a short segment intussusception of the proximal small bowel left mid abdomen with mild localized on the distention of a short segment of the proximal small bowel leading into the intussusception. Findings are best appreciated on coronal sequence image number 47 [id number] 54. No evidence of acute mechanical bowel obstruction with oral contrast material seen distally the in the distal small bowel. Note also made of a small mid upper abdominal ventral wall hernia which contains mesentery and a short segment/knuck le of transverse colon however no evidence of obstruction. There is a short segment intussusception left mid small bowel left upper quadrant of the abdomen. Consider GI consultation to exclude the possibility of a abnormal lead point. Cholecystectomy with mild extrahepatic and central intrahepatic biliary ductal dilatation. Mild fatty hepatic infiltration. Small left ovarian cyst. NPO Morphine 2mg Q4H PRN IVF 100mls/hr Surgery consult. Help appreciated. HTN amlodipine 5mg daily DM with neuropathy RISS Q6H hypoglycemnia protocol Accuchecks Q6H Gabapentin 30mg BID Asthma Breo Ellipta 200-25 1 puff daily Montelukast 10mg HS Hypothyroid Levothyroxine 175 mcg daily Bipolar abilify 10mg HS Quetiapine 50mg HS Prophylaxis famotidine 20mg IVP BID SCDs Heparin held due to hx of bleeding ulcer
[2018-07-25] MEDS: (Novolin R) Insulin Human Regular 100 units/ml vial SC SCH ×2 (06:09→12:52)
[2018-07-25] MEDS ORDERED: Levothyroxine 175 MCG TAB PO SCH (06:30)
[2018-07-25 07:39] LABS: BASO % 1.1 % (0.0-2.0); EOS # 0.1 K/uL (0.0-0.7); EOS % 3.2 % (0.0-4.0); HEMOGLOBIN 12.1 g/dL (11.0-16.0); LYMPH # 1.6 K/uL (1.0-4.3); LYMPH % 36.3 % (20.0-40.0); MEAN CELL VOLUME 78.7 fL (81.0-99.0); MEAN CORPUSCULAR HEMOGLOBIN 26.3 pg (27.0-31.0); MEAN CORPUSCULAR HGB CONC 33.5 g/dL (33.0-37.0); MEAN PLATELET VOLUME 8.6 fL (7.2-11.7); MONO # 0.4 K/uL (0.0-0.8); MONO % 9.5 % (0.0-10.0); NEUT # 2.3 K/uL (1.8-7.0); NEUT % 49.9 % (50.0-75.0); RBC 4.6 Mil/uL (3.80-5.20); RED CELL DISTRIBUTION WIDTH 14.8 % (11.5-14.5); WHITE BLOOD COUNT 4.5 K/uL (4.8-10.8)
[2018-07-25] MEDS ORDERED: Fluticasone-Vilanterol 200/25mcg Diskus INH SCH (08:00)
[2018-07-25 08:21] LABS: ALB/GLOB RATIO 1.3 (1.0-2.1); ALBUMIN 3.4 g/dL (3.5-5.0); ALT/SGPT 23 U/L (9-52); AST/SGOT 23 U/L (14-36); BLOOD UREA NITROGEN 15 mg/dL (7-17); CALCIUM 8.4 mg/dl (8.6-10.4); GFR NON-AFRICAN AMERICAN > 60
[2018-07-25] MEDS ORDERED: Potassium Ch 20mEq in D5W 1,000 ML IV SCH (08:30)
--- NOTE | 2018-07-25 08:37 | CP.PCM.PN ---
<Milly Ch - Last Filed: 07/25/18 08:50> Subjective - Date & Time of Evaluation Date of Evaluation: 07/25/18 Time of Evaluation: 08:37 - Subjective Subjective: surgery Pt seen and examined. No acute events. Denies pain, nausea, vomiting, diarreah. LAst BM was yesterday. Denies flatus or BM today. Objective - Vital Signs/Intake and Output Vital Signs (last 24 hours): Temp Pulse Resp BP Pulse Ox 97.8 F 61 20 157/95 H 96 07/25/18 00:35 07/25/18 00:35 07/25/18 00:35 07/25/18 00:35 07/25/18 00:35 Intake and Output: 07/25/18 07/25/18 06:59 18:59 Intake Total 600 Balance 600 - Medications Medications: Current Medications Amlodipine Besylate (Norvasc) 5 mg PO DAILY [facility] Aripiprazole (Abilify) 10 mg PO HS [facility] Last Admin: 07/25/18 00:11 Dose: 10 mg Dextrose (Dextrose 50% Inj) 0 ml IV STAT PRN; Protocol PRN Reason: Hypoglycemia Protocol Dextrose (Glutose 15) 0 gm PO ONCE PRN; Protocol PRN Reason: Hypoglycemia Protocol Famotidine (Pepcid) 20 mg IVP BID [facility] Fluticasone/Vilanterol (Breo Ellipta 200-25 Mcg Inh) 1 puff INH RQ24 [facility] Gabapentin (Neurontin) 300 mg PO BID [facility] Glucagon (Glucagen Diagnostic Kit) 0 mg IM STAT PRN; Protocol PRN Reason: Hypoglycemia Protocol Dextrose (Dextrose 5% In Water 1000 Ml) 1,000 mls @ 0 mls/hr IV .Q0M PRN; Protocol PRN Reason: Hypoglycemia Protocol Sodium Chloride (Sodium Chloride 0.9%) 1,000 mls @ 100 mls/hr IV .Q10H [facility] Last Admin: 07/25/18 00:00 Dose: 100 mls/hr Potassium Chloride (Potassium Chloride 20 Meq/100 Ml) 20 meq in 100 mls @ 50 mls/hr IVPB ONCE ONE Stop: 07/25/18 10:24 Potassium Chloride (Potassium Chloride 20 Meq/100 Ml) 20 meq in 100 mls @ 50 mls/hr IVPB ONCE ONE Stop: 07/25/18 12:29 Insulin Human Regular (Novolin R) 0 unit SC Q6 [facility]; Protocol Last Admin: 07/25/18 06:09 Dose: Not Given Levothyroxine Sodium (Synthroid) 175 mcg PO 0630 [facility] Last Admin: 07/25/18 06:37 Dose: 175 mcg Montelukast Sodium (Singulair) 10 mg PO [facility] Last Admin: 07/25/18 00:12 Dose: 10 mg Morphine Sulfate (Morphine) 2 mg IVP Q4H PRN PRN Reason: Pain, moderate (4-7) Ondansetron HCl (Zofran Inj) 4 mg IVP Q6H PRN PRN Reason: Nausea/Vomiting Pneumococcal Polyvalent Vaccine (Pneumovax 23 Vaccine) 0.5 ml IM .ONCE ONE Stop: 07/27/18 10:01 Quetiapine Fumarate (Seroquel) 50 mg PO [facility] Last Admin: 07/25/18 00:11 Dose: 50 mg - Labs Labs: 07/25/18 07:24 07/25/18 07:24 - Constitutional Appears: No Acute Distress - Eye Exam Eye Exam: EOMI, Normal appearance, PERRL Pupil Exam: NORMAL ACCOMODATION, PERRL - ENT Exam ENT Exam: Mucous Membranes Moist, Normal Exam - Neck Exam Neck Exam: Full ROM, Normal Inspection. absent: Lymphadenopathy - Respiratory Exam Respiratory Exam: NORMAL BREATHING PATTERN - Cardiovascular Exam Cardiovascular Exam: REGULAR RHYTHM, +S1, +S2. absent: Murmur - GI/Abdominal Exam GI & Abdominal Exam: Soft, Tenderness. absent: Distended, Firm, Mass, Rebound Additional comments: ABd TTP on R side. - Extremities Exam Extremities Exam: Full ROM, Normal Capillary Refill, Normal Inspection. 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 Plan: Recommend bariatric surgery consult or transfer to a bariatric surgery center as this is a complication of her bariatric surgery--management can be highly complex and would benefit from specialized care--if patient worsens, patient should be immediately transferred Will continue to monitor closely while inhouse NPO IVF PRN pain and nausea medications Replete electrolyte PRN Discussed with Dr. Mosquera <Parul Mosquera - Last Filed: 07/25/18 18:25> Objective - Vital Signs/Intake and Output Vital Signs (last 24 hours): Temp Pulse Resp BP Pulse Ox 98.0 F 59 L 20 129/85 95 07/25/18 15:00 07/25/18 15:00 07/25/18 15:00 07/25/18 15:00 07/25/18 15:00 Intake and Output: 07/25/18 07/25/18 06:59 18:59 Intake Total 600 800 Balance 600 800 - Labs Labs: 07/25/18 07:24 07/25/18 07:24 Assessment and Plan - Assessment and Plan (Free Text) Plan: Patient seen and examined with resident at bedside. Agree with above. Continues to have pain without resolution of symptoms which have been present and progressively worsening over last week. Rec transfer to bariatric center for revisional surgery and establishment of bariatric care and follow up.
[2018-07-25] MEDS: Sodium Chloride 0.9% 1,000 ML IV SCH ×2 (09:09)
[2018-07-25 10:28] VITALS: O2SAT 95
--- NOTE | 2018-07-25 11:15 | CP.PCM.DIS ---
Provider - Provider Date of Admission: 07/24/18 17:36 Attending physician: Andrez Brown DO Primary care physician: Dr. Still Consults: Dr. Belen Mosquera Time Spent in preparation of Discharge (in minutes): 20 Diagnosis - Discharge Diagnosis (1) Abdominal pain Status: Acute Comment: worsening abdominal pain inspite of PRN. [facility] Sp[facility] with Dr[facility] Shalom Mosquera at [facility] accepts the patient to his service (2) Intussusception Status: Acute Comment: Ct abdomen/pelvis: postoperative changes of gastric bypass surgery. Wall thickening of excluded portion of the stomach. Short segment of intussusception of proximal small bowel mid abdomen with mild localizaed on distention of a short segment of the proximal small bowel leading to intussception. no evidence of acute mechanical bowel obstruciton with oral contrast material seen distally small bowel. (3) History of gastric surgery Status: Acute (4) Hypertension Status: Chronic Priority: Medium (5) Asthma Status: Chronic Hospital Course - Lab Results Lab Results: Most Recent Lab Values WBC 4.5 K/uL (4.8-10.8) L 07/25/18 07:24 RBC 4.60 Mil/uL (3.80-5.20) 07/25/18 07:24 Hgb 12.1 g/dL (11.0-16.0) 07/25/18 07:24 Hct 36.2 % (34.0-47.0) 07/25/18 07:24 MCV 78.7 fL (81.0-99.0) L 07/25/18 07:24 MCH 26.3 pg (27.0-31.0) L 07/25/18 07:24 MCHC 33.5 g/dL (33.0-37.0) 07/25/18 07:24 RDW 14.8 % (11.5-14.5) H 07/25/18 07:24 Plt Count 219 K/uL (130-400) 07/25/18 07:24 MPV 8.6 fL (7.2-11.7) 07/25/18 07:24 Neut % (Auto) 49.9 % (50.0-75.0) L 07/25/18 07:24 Lymph % (Auto) 36.3 % (20.0-40.0) 07/25/18 07:24 Floyd % (Auto) 9.5 % (0.0-10.0) 07/25/18:24 Eos % (Auto) 3.2 % (0.0-4.0) 07/25/18:24 Baso % (Auto) 1.1 % (0.0-2.0) 07/25/18:24 Neut # (Auto) 2.3 K/uL (1.8-7.0) 07/25/18:24 Lymph # (Auto) 1.6 K/uL (1.0-4.3) 07/25/18:24 Floyd # (Auto) 0.4 K/uL (0.0-0.8) 07/25/18:24 Eos # (Auto) 0.1 K/uL (0.0-0.7) 07/25/18:24 Baso # (Auto) 0.0 K/uL (0.0-0.2) 07/25/18:24 pO2 18 mm/Hg (30-55) L 07/24/18 17:57 VBG pH 7.36 (7.32-7.43) 07/24/18 17:57 VBG pCO2 55 mmHg (40-60) 07/24/18 17:57 VBG HCO3 26.2 mmol/L 07/24/18 17:57 VBG Total CO2 32.8 mmol/L (22-28) H 07/24/18 17:57 VBG O2 Sat (Calc) 25.9 % (40-65) L 07/24/18 17:57 VBG Base Excess 4.2 mmol/L (0.0-2.0) H 07/24/18 17:57 VBG Potassium 3.2 mmol/L (3.6-5.2) L 07/24/18 17:57 Sodium 137.0 mmol/l (132-148) 07/24/18 17:57 Chloride 100.0 mmol/L (98-107) 07/24/18 17:57 Glucose 137 mg/dl (65-105) H 07/24/18 17:57 Lactate 1.0 mmol/L (0.7-2.1) 07/24/18 17:57 Sodium 137 mmol/L (132-148) 07/25/18 07:24 Potassium 3.5 mmol/L (3.6-5.2) L 07/25/18 07:24 Chloride 102 mmol/L (98-107) 07/25/18 07:24 Carbon Dioxide 26 mmol/L (22-30) 07/25/18 07:24 Anion Gap 13 (10-20) 07/25/18 07:24 BUN 15 mg/dL (7-17) 07/25/18 07:24 Creatinine 0.6 mg/dL (0.7-1.2) L 07/25/18 07:24 Est GFR ( Amer) > 60 07/25/18 07:24 Est GFR (Non-Af Amer) > 60 07/25/18 07:24 POC Glucose (mg/dL) 168 mg/dL (65-110) H 07/25/18 06:09 Random Glucose 156 mg/dL (65-105) H 07/25/18 07:24 Lactic Acid 0.9 mmol/L (0.7-2.1) 07/25/18 07:24 Calcium 8.4 mg/dl (8.6-10.4) L 07/25/18 07:24 Total Bilirubin 1.0 mg/dL (0.2-1.3) 07/25/18 07:24 AST 23 U/L (14-36) 07/25/18 07:24 ALT 23 U/L (9-52) 07/25/18 07:24 Alkaline Phosphatase 97 U/L (38-126) 07/25/18 07:24 Total Protein 6.1 g/dL (6.3-8.3) L 07/25/18 07:24 Albumin 3.4 g/dL (3.5-5.0) L D 07/25/18 07:24 Globulin 2.7 gm/dL (2.2-3.9) 07/25/18 07:24 Albumin/Globulin Ratio 1.3 (1.0-2.1) 07/25/18 07:24 Lipase 69 U/L (23-300) 07/24/18 11:52 Venous Blood Potassium 3.2 mmol/L (3.6-5.2) L 07/24/18 17:57 Urine Color Straw (YELLOW) 07/24/18 12:03 Urine Clarity Clear (Clear) 07/24/18 12:03 Urine pH 7.0 (5.0-8.0) 07/24/18 12:03 Ur Specific Jackson 1.008 (1.003-1.030) 07/24/18 12:03 Urine Protein 1+ mg/dL (NEGATIVE) H 07/24/18 12:03 Urine Glucose (UA) Normal mg/dL (Normal) 07/24/18 12:03 Urine Ketones Negative mg/dL (NEGATIVE) 07/24/18 12:03 Urine Blood Negative (NEGATIVE) 07/24/18 12:03 Urine Nitrate Negative (NEGATIVE) 07/24/18 12:03 Urine Bilirubin Negative (NEGATIVE) 07/24/18 12:03 Urine Urobilinogen Normal mg/dL (0.2-1.0) 07/24/18 12:03 Ur Leukocyte Esterase Neg [place]/uL (Negative) 07/24/18 12:03 Urine WBC (Auto) < 1 /hpf (0-5) 07/24/18 12:03 Urine RBC (Auto) 1 /hpf (0-3) 07/24/18 12:03 Ur Squamous Epith Cells < 1 /hpf (0-5) 07/24/18 12:03 Urine Bacteria Rare (<OCC) 07/24/18 12:03 - Hospital Course Hospital Course: As per H&P "PGY-1 H&P note for hospitalist service. 63 year old female with PMHx of HTN, DM, Asthma, thyroid cancer (in remission), gastric ulcer presents to ED complaining of intermittent abdominal pain that began one week ago and has been progressively worsening. Pain is located in the RUQ and radiates to the back. Treatment with Aleve and Tylenol provided no improvement in symptoms. Pain not associated with eating. Admits to nausea, dizziness and headache. Denies fever, chills, diarrhea, hematochezia, melena, dysuria, recent illness, and sick contacts. PMHx: HTN, DM, Asthma, thyroid cancer (in remission), hypothyroid, gastric ulcer, bipolar disorder PSHx: cholecystectomy 4 years ago, gastric bypass 10 years ago, knee surgery 5 years ago, ear surgery. Meds: Metformin 500 BID, amlodipine 5mg PO daily, quetiapine 50mg HS, Montelukast 10mg HS, Levothyroxine 175mcg Allergies: methylprednisolone Social Hx: denies tobaco and alcohol; quit cocaine 5 years ago Family Hx: Mother of stomach cancer at 45 PMD: [place]" Patient observed under the general medical floor. Patient received one dose of Morphine in the ED. However, patient reports abdominal pain is worsening inspite of the PRN morphine given on admission. ED has spoken with Dr. sahra Mosquera states that the intussusception is due jejunal-jejunal anastomsis (from bariatric surgery 15 yrs ago) getting larger and causing a lead point. He recommends discussing with a bariatric surgery center for possible transfer. ED has called bariatric surgery attending Dr. Shalom Casas (cell [phone]) from [facility] (which has a bariatric program) and he states that since patient is currently very comfortable, he recommends admission overnight. If patient remains comfortable, then patient could be discharged and followed up as an outpatient, and recommends evaluation by our own surgical attending during this admission. However, if patient's pain returns or symptoms worsen, then the patient could be transferred to his institution for evaluation and possible treatment. Today on 07/25/18, patient's abdominal pain continues to persist, she remains NPO, potassium repleted via IV. I have spoke with Dr. Shalom Wade ([phone]). bariatric surgeon at [facility] in regards to the patient who was initially contacted on admission by the emergency room. He has accepted the patient to his service, when bed is available. Patient to be transferred with copy of CD, report of imaging obtain during her hospitalization. EMTLA has been filled. I have spoken with nursing staff to prepare CD and Reports to accompany patient on discharge. This is a summary of patient's hospitalization. Please refer to EMR for further detail of record. - Date & Time of H&P Date of H&P: 07/25/18 Time of H&P: 02:37 Discharge Exam - Head Exam Head Exam: ATRAUMATIC, NORMAL INSPECTION, NORMOCEPHALIC - Eye Exam Eye Exam: EOMI - ENT Exam ENT Exam: Mucous Membranes Moist - Respiratory Exam Respiratory Exam: Clear to PA & Lateral, NORMAL BREATHING PATTERN. absent: Rales, Rhonchi - Cardiovascular Exam Cardiovascular Exam: REGULAR RHYTHM, +S1, +S2 - GI/Abdominal Exam GI & Abdominal Exam: Guarding (mild involuntary), Normal Bowel Sounds, Soft, Tenderness (epigastric). absent: Distended, Firm, Rebound, Rigid - Extremities Exam Extremities exam: pedal pulses present - Back Exam Back exam: absent: rash noted - Neurological Exam Neurological exam: Alert, Oriented x3 - Psychiatric Exam Psychiatric exam: Normal Affect, Normal Mood - Skin Skin Exam: Dry, Intact, Normal Color, Warm Discharge Plan - Follow Up Plan Condition: STABLE Disposition: Trans to Other Acute Care [facility] Additional Instructions: patient to be transferred under Dr. Shalom Wade service at [place], [place] when bed is available. Please include with transfer to copy of imaging, CD of the CT scan, and labs completed during hospitalization.
[2018-07-25 15:48] VITALS: BP 129/85; PULSE 59; TEMP 98
[2018-07-27] MEDS ORDERED: Pneumococcal 23-Valent Vaccine IM ONE (10:00)
== END 2018-07-25 16:45 | disposition short-term general hospital (02) ==
LOC: C.ER 10:55 → C.9E 17:36 → INTOOBSV 17:36 → C.3T 23:00
PROVIDERS: ADMIT Hospitalist; ATTEND Hospitalist
DX: K95.89 Other complications of other bariatric procedure (principal); K56.1 Intussusception; E11.22 Type 2 diabetes mellitus with diabetic chronic kidney disease; N18.9 Chronic kidney disease, unspecified; E11.40 Type 2 diabetes mellitus with diabetic neuropathy, unspecified; Y84.8 Other medical procedures as the cause of abnormal reaction of the patient, or of later complication, without mention of misadventure at the time of the procedure; I12.9 Hypertensive chronic kidney disease with stage 1 through stage 4 chronic kidney disease, or unspecified chronic kidney disease; E89.0 Postprocedural hypothyroidism; J45.909 Unspecified asthma, uncomplicated; F31.9 Bipolar disorder, unspecified; K21.9 Gastro-esophageal reflux disease without esophagitis; Z98.84 Bariatric surgery status; Z85.850 Personal history of malignant neoplasm of thyroid; Z79.84 Long term (current) use of oral hypoglycemic drugs; Z80.0 Family history of malignant neoplasm of digestive organs; Z90.49 Acquired absence of other specified parts of digestive tract; Z87.442 Personal history of urinary calculi; Z87.11 Personal history of peptic ulcer disease
CPT/HCPCS: 36415; 74177; 76705; 80053; 81001; 82803; 82948; 83605; 83690; 85025; 96374; 96375; 96376; 99285; G0378; J2270; J3480; J7030; Q9966; Q9967

== ENCOUNTER 2018-11-20 17:44 | Emergency (ER) | payer MEDICAID ==
[2018-11-20 17:44] VITALS: BMI 27.4
[2018-11-20 18:57] VITALS: O2SAT 98
[2018-11-20] MEDS ORDERED: Albuterol-Ipratrop 3 mg / 0.5 (3 ml) UD INH STA ×2 (19:33→19:34)
[2018-11-20] MEDS ORDERED: Albuterol-Ipratrop 3 mg / 0.5 (3 ml) UD ONE (19:52)
--- NOTE | 2018-11-20 20:27 | C.PDOC ---
History Of Present Illness 63 year old female presents to the ED c/o typical asthma exacerbation for the past 1 day. Patient states she uses ventolin only as needed. Patient also reports having dry cough. Patient denies fever, chills, body aches, CP, abdominal pain, rash. Chief Complaint (Nursing): Shortness Of Breath History Per: Patient History/Exam Limitations: no limitations Onset/Duration Of Symptoms: Days (1) Current Symptoms Are (Timing): Still Present Initiating Event: Upper Respiratory Illness Quality: Tightness Current Respiratory Medications: See Home Med List Recent travel outside of the [place]: No Additional History Per: Patient Past Medical History Reviewed: Historical Data, Nursing Documentation, Vital Signs Vital Signs: Last Vital Signs Temp 98 F 11/20/18 18:40 Pulse 97 H 11/20/18 18:40 Resp 23 11/20/18 18:40 BP 147/75 11/20/18 18:40 Pulse Ox 98 11/20/18 18:40 - Medical History PMH: Anemia, Anxiety, Arthritis, Asthma, Depression, Diabetes, Fractures (LEFT LEG), Gastritis, Gastrointestinal Ulcer, Gall Bladder Disease, HTN, Hyperthyroidism, Hypothyroidism (S\P THYROIDECTOMY FOR CANCER), Kidney Stones, Malignancy (Thyroid), Pancreatitis, Chronic Kidney Disease Denies: Bipolar Disorder, Hepatitis, HIV, Hypercholesterolemia, Schizophrenia, Seizures, Sexually Transmitted Disease Surgical History: Cholecystectomy, Endoscopy - [facility] Procedures APPLICATION OF SPLINT (12/01/14) CYSTOSCOPY NEC (07/21/13) EXCISION OF STOMACH, ENDO, DIAGN (04/06/16) GROUP PSYCHOTHERAPY (03/26/18) INDIV PSYCHOTHERAPY FOR SUBSTANCE ABUSE TREATMENT, SUPPORT (03/26/18) INDIVID PSYCHOTHERAP NEC (04/03/14) LAPAROSCOP LYSIS-PERITONEAL ADHES (05/11/15) LAPAROSCOPIC CHOLECYSTECTOMY (05/11/15) MEDICATION MANAGEMENT (03/26/18) OTHER GROUP THERAPY (04/03/14) PERCUTANEOUS ABDOMINAL DRAINAGE (05/11/15) REMOV URETERAL DRAIN (07/21/13) URETERAL CATHETERIZATION (07/02/13) Family History: States: Unknown Family Hx - Social History Hx Tobacco Use: No Hx Alcohol Use: No Hx Substance Use: No - Immunization History Hx Tetanus Toxoid Vaccination: No Hx Influenza Vaccination: No Hx Pneumococcal Vaccination: No Review Of Systems Constitutional: Negative for: Fever, Chills ENT: Negative for: Nose Discharge, Nose Congestion Cardiovascular: Negative for: Chest Pain, Palpitations Respiratory: Positive for: Cough, Shortness of Breath, Wheezing Gastrointestinal: Negative for: Nausea, Vomiting, Abdominal Pain Skin: Negative for: Rash Neurological: Negative for: Weakness, Numbness, Headache, Dizziness Physical Exam - Physical Exam Appears: Non-toxic, No Acute Distress Skin: Normal Color, Warm, Dry Head: Atraumatic, Normacephalic Eye(s): bilateral: Normal Inspection Oral Mucosa: Moist Neck: Normal ROM, Supple Chest: Symmetrical Cardiovascular: Rhythm Regular Respiratory: No Rales, No Rhonchi, Wheezing (minimal expiratory), Other (good air entry) Gastrointestinal/Abdominal: Soft, No Tenderness, No Guarding, No Rebound Extremity: Normal ROM, No Tenderness, No Swelling Neurological/Psych: Oriented x3, Normal Speech, Normal Cognition Gait: Steady ED Course And Treatment O2 Sat by Pulse Oximetry: 98 (On RA) Pulse Ox Interpretation: Normal Medical Decision Making Medical Decision Making: Plan: * CXR * Duoneb X 2 Patient reports improvement after medication was given. Patient advised to follow up with PMD in 2 days. Disposition - Disposition Referrals: Nancy Still MD [Staff Provider] - Disposition: HOME/ ROUTINE Disposition Time: 20:25 Condition: IMPROVED Additional Instructions: IVELISSE PRITCHETT, thank you for letting us take care of you today. The emergency medical care you received today was directed at your acute symptoms. If you were prescribed any medication, please fill it and take as directed. It may take several days for your symptoms to resolve. Return to the Emergency Department if your symptoms worsen, do not improve, or if you have any other problems. Please contact your doctor or call one of the physicians/clinics you have been referred to that are listed on the Patient Visit Information form that is incl uded in your discharge packet. Bring any paperwork you were given at discharge with you along with any medications you are taking to your follow up visit. Our treatment cannot replace ongoing medical care by a primary care provider outside of the emergency department. Thank you for allowing the [facility] team to be part of your care today. Follow up with your primary care doctor in 3-5 days for re-evaluation and further management. Prescriptions: predniSONE [Prednisone] 40 mg PO DAILY #10 tab Instructions: Asthma, Adult (DC) Forms: [employer] (Mohawk) - Clinical Impression Clinical Impression: Asthma exacerbation - Scribe Statement The provider has reviewed the documentation as recorded by the Scribe Ean Bajwa All medical record entries made by the Scribe were at my direction and personally dictated by me. I have reviewed the chart and agree that the record accurately reflects my personal performance of the history, physical exam, medical decision making, and the department course for this patient. I have also personally directed, reviewed, and agree with the discharge instructions and disposition.
[2018-11-20 20:39] VITALS: BP 127/73; PULSE 100; RESP 20; TEMP 98.2
--- NOTE | 2018-11-21 10:24 | RAD ---
Date of service: 11/20/2018 HISTORY: cough r/o infiltrate COMPARISON: Portable chest 04/08/2017. FINDINGS: LUNGS: No active pulmonary disease. PLEURA: No significant pleural effusion identified, no pneumothorax apparent. CARDIOVASCULAR: No aortic atherosclerotic calcification present. Normal cardiac size. No pulmonary vascular congestion. OSSEOUS STRUCTURES: No significant abnormalities. VISUALIZED UPPER ABDOMEN: Normal. OTHER FINDINGS: None. IMPRESSION: No interval acute cardiopulmonary disease appreciated.
== END 2018-11-20 20:45 | disposition home or self-care (01) ==
LOC: C.ER 17:44
DX: J45.901 Unspecified asthma with (acute) exacerbation (principal); I12.9 Hypertensive chronic kidney disease with stage 1 through stage 4 chronic kidney disease, or unspecified chronic kidney disease; N18.9 Chronic kidney disease, unspecified; E11.9 Type 2 diabetes mellitus without complications

== ENCOUNTER 2019-01-19 15:21 | Emergency (ER) | payer MEDICAID ==
[2019-01-19 15:21] VITALS: BMI 27.4
[2019-01-19 16:01] VITALS: BP 152/81; PULSE 83; RESP 18; TEMP 98.4; O2SAT 98
--- NOTE | 2019-01-19 16:40 | C.PDOC ---
History Of Present Illness 63 y/o female presents to the ER complaining of insomnia which has been present for the past 2 weeks. Patient states that she went to the [facility] today and she was referred to the ER. Patient reports that she has history of bipolar disorder. She used to see a psychiatrist but she has not been seeing a psychiatrist recently. She notes that she does have adequate bipolar disorder medications at home.Denies having fever,chills, nausea, vomiting, and significant weight loss. Time Seen by Provider: 01/19/19 16:31 Chief Complaint (Nursing): Medical Clearance History Per: Patient History/Exam Limitations: no limitations Onset/Duration Of Symptoms: Days Current Symptoms Are (Timing): Still Present Severity: Moderate Past Medical History Reviewed: Historical Data, Nursing Documentation, Vital Signs Vital Signs: Last Vital Signs Temp 98.4 F 01/19/19 15:49 Pulse 83 01/19/19 15:49 Resp 18 01/19/19 15:49 BP 152/81 H 01/19/19 15:49 Pulse Ox 98 01/19/19 15:49 - Medical History PMH: Anemia, Anxiety, Arthritis, Asthma, Depression, Diabetes, Fractures (LEFT LEG), Gastritis, Gastrointestinal Ulcer, Gall Bladder Disease, HTN, Hyperthyroidism, Hypothyroidism (S\P THYROIDECTOMY FOR CANCER), Kidney Stones, Malignancy (Thyroid), Pancreatitis, Chronic Kidney Disease Denies: Bipolar Disorder, Hepatitis, HIV, Hypercholesterolemia, Schizophrenia, Seizures, Sexually Transmitted Disease Surgical History: Cholecystectomy, Endoscopy - [facility] Procedures APPLICATION OF SPLINT (12/01/14) CYSTOSCOPY NEC (07/21/13) EXCISION OF STOMACH, ENDO, DIAGN (04/06/16) GROUP PSYCHOTHERAPY (03/26/18) INDIV PSYCHOTHERAPY FOR SUBSTANCE ABUSE TREATMENT, SUPPORT (03/26/18) INDIVID PSYCHOTHERAP NEC (04/03/14) LAPAROSCOP LYSIS-PERITONEAL ADHES (05/11/15) LAPAROSCOPIC CHOLECYSTECTOMY (05/11/15) MEDICATION MANAGEMENT (03/26/18) OTHER GROUP THERAPY (04/03/14) PERCUTANEOUS ABDOMINAL DRAINAGE (05/11/15) REMOV URETERAL DRAIN (07/21/13) URETERAL CATHETERIZATION (07/02/13) Family History: States: No Known Family Hx - Social History Hx Tobacco Use: No Hx Alcohol Use: No Hx Substance Use: No - Immunization History Hx Tetanus Toxoid Vaccination: No Hx Influenza Vaccination: No Hx Pneumococcal Vaccination: No Review Of Systems Except As Marked, All Systems Reviewed And Found Negative. Constitutional: Positive for: Other (insomnia). Negative for: Fever, Chills Cardiovascular: Negative for: Chest Pain Respiratory: Negative for: Shortness of Breath Gastrointestinal: Negative for: Nausea, Vomiting Physical Exam - Physical Exam Appears: Non-toxic, No Acute Distress, Other (awake,alert,anxious) Skin: Normal Color, Warm, Dry Head: Atraumatic, Normacephalic Eye(s): bilateral: Normal Inspection Nose: Normal Oral Mucosa: Moist Neck: Supple Chest: Symmetrical Cardiovascular: Rhythm Regular Respiratory: Normal Breath Sounds, No Rales, No Rhonchi, No Wheezing Gastrointestinal/Abdominal: Normal Exam, Soft, No Tenderness, No Guarding, No Rebound Neurological/Psych: Oriented x3, Normal Speech ED Course And Treatment O2 Sat by Pulse Oximetry: 98 (RA) Pulse Ox Interpretation: Normal Medical Decision Making Medical Decision Making: stable exam and Bipolar wants sleep meds lost to f/u with Psych, used to go accross the street recommended to f/u with Psych advised OTC sleep aids- benadryl/sleepy time teas, etc opt f/u w Clinic for Thyroid meds modifications. Disposition Doctor Will See Patient In The: Office Counseled Patient/Family Regarding: Studies Performed, Diagnosis - Disposition Referrals: [facility] [Outside] [facility] [Outside] [facility] [Outside] [facility] [Outside] Disposition: HOME/ ROUTINE Disposition Time: 16:41 Condition: GOOD Additional Instructions: sleepy Time Teas and Benadryl Sleep aids as needed opt f/u with Psych for psych meds changes Thyroid meds modifications per the +Family Practice Clinic Instructions: Insomnia, Bipolar Disorder Forms: [employer] (Ukrainian) - Clinical Impression Clinical Impression: Insomnia, Bipolar 1 disorder - Scribe Statement The provider has reviewed the documentation as recorded by the Rachana Arce Provider Attestation: All medical record entries made by the Patriciaibsanthosh were at my direction and personally dictated by me. I have reviewed the chart and agree that the record accurately reflects my personal performance of the history, physical exam, medical decision making, and the department course for this patient. I have also personally directed, reviewed, and agree with the discharge instructions and disposition.
== END 2019-01-19 16:48 | disposition home or self-care (01) ==
LOC: C.ER 15:21
DX: G47.00 Insomnia, unspecified (principal); F31.9 Bipolar disorder, unspecified; I12.9 Hypertensive chronic kidney disease with stage 1 through stage 4 chronic kidney disease, or unspecified chronic kidney disease; N18.9 Chronic kidney disease, unspecified; E11.9 Type 2 diabetes mellitus without complications